=== PATIENT | female | born 1985 | race Caucasian/White ===

== ENCOUNTER 2021-06-20 04:46 | Emergency (ER) | payer MEDICAID, SELFPAY ==
[2021-06-20 06:11] VITALS: BP 159/126; PULSE 94; RESP 14; O2SAT 98; BMI 23.3
[2021-06-20 06:41] LABS: MANUAL DIFF FLAG NO
[2021-06-20 06:43] LABS: Appearance Urine CLOUDY; Color Urine RED; Glucose Urine UA NEG (NEG); Leukocyte Esterase Urine TRACE (NEG); Nitrite Urine NEG (NEG); Specific Gravity - Urine <= 1.005 (1.005-1.025); UACC Culture Trigger YES; Urine Blood 3+ (NEG); Urine Ketones NEG (NEG); Urine Protein TRACE MG/DL (NEG-TRACE)
[2021-06-20 06:49] LABS: Bacteria Urine TRACE /LPF; Squamous Epithelial Cell Urine 2+ /LPF
[2021-06-20 06:52] LABS: Basophils Percent Auto 0.5 % (0-2); Eosinophils Absolute Auto 0.1 X10*3/uL (0.0-0.4); Eosinophils Percent Auto 0.9 % (0-4); Hematocrit 41.3 % (37-47); Hemoglobin 14.6 g/dl (12.0-16.0); Imm Gran Abs Auto 0.02 X10*3/uL (0.00-0.03); Imm Gran Pct Auto 0.3 % (0.0-0.4); Lymphocytes Absolute Auto 2.2 X10*3/uL (1.2-4.9); Lymphocytes Percent Auto 27.1 % (20-40); Mean Corpuscular HGB Conc 35.4 g/dl (31.0-35.0); Mean Corpuscular Hemoglobin 33.5 pg (27.0-33.0); Mean Corpuscular Volume 94.7 fL (80-98); Mean Platelet Volume 8.9 fL (9.4-12.3); Monocytes Absolute Auto 0.4 X10*3/uL (0.1-1.2); Monocytes Percent Auto 4.4 % (2-11); Neutrophils Absolute Auto 5.4 X10*3/uL (2.0-8.3); Neutrophils Percent Auto 66.8 % (45-73); Platelet Count 291 X10*3/uL (160-400); Red Blood Count 4.36 X10*6/uL (4.20-5.50); Red Cell Distribution Width 13.2 % (11.0-16.0)
[2021-06-20 07:14] LABS: Anion Gap 14 (12-20); Blood Urea Nitrogen 4 mg/dL (9-16); Calcium 9.2 mg/dL (8.4-10.2); Carbon Dioxide 29 mmol/L (22-29); Chloride 101 mmol/L (96-108); Creatinine Clr Calc Pharmacy 98.1; Estimated Glomerular Filt Rate > 60; Glucose Random 101 mg/dL (60-115); Potassium 3.9 mmol/L (3.3-5.1); Sodium 140 mmol/L (135-145)
[2021-06-20 07:27] LABS: UPreg QC Valid YES; Urine Pregnancy NEGATIVE (NEGATIVE)
[2021-06-20] MEDS: 0.9 % Sodium Chloride 1,000 ML 999 ML IV (09:12)
[2021-06-20] MEDS: ondansetron HCL 4 MG/2 ML VIAL IVPUSH (09:12)
--- NOTE | 2021-06-20 09:40 | ED_ITS ---
HPI - Nausea/Vomiting/Diarrhea General Chief complaint: Nausea/Vomiting/Diarrhea Stated complaint: nausea, vomiting Time Seen by Provider: 06/20/21 08:32 Source: patient Mode of arrival: ambulatory Limitations: no limitations History of Present Illness HPI Narrative: A 36-year-old female presents for 3 weeks of nausea and vomiting. Patient states that she had missed her menses and a positive test 2 days ago. Yesterday a test was negative at home. Patient has a history of hyperemesis, and started her period yesterday. She is soaking 3 pads a day. Her last menstrual period was 6 weeks ago. When patient has been before she has had severe nausea and vomiting. Patient is able to eat, she ate salad prior to arrival. She is able to tolerate p.o. fluids and is drinking plenty of water. No abdominal pain, no fevers. MD elicited complaint: nausea and vomiting Onset (ago): week(s) (3) Description of vomiting: food contents Associated nausea: Yes Associated abdominal pain: No Related Data Previous Rx's Medication Instructions Recorded ondansetron HCl 4 mg tablet 4 mg PO Q8H 3 Days #9 tab 06/20/21 (Zofran) Allergies Allergy/AdvReac Type Severity Reaction Status Date / Time prednisone [PREDNISONE] Allergy Severe SWELLING, Unverified 06/24/20 15:32 HTN Review of Systems Constitutional: Constitutional: Denies body ache(s), Denies chills, Denies fatigue, Denies fever(s), Denies headache(s), Denies malaise and Denies weakness Eyes: Eyes: Denies diplopia ENT: Denies vertigo, Denies dizziness, Denies otalgia, Denies headache(s), Denies post nasal drip, Denies sinus pain, Denies sinus pressure and Denies sore throat Cardiovascular: Cardiovascular: Denies chest pain, Denies syncope, Denies leg edema, Denies lightheadedness, Denies Loss of Consciousness, Denies palpitations and Denies dyspnea Respiratory: Respiratory: Denies chest congestion, Denies cough and Denies dyspnea Gastrointestinal: Gastrointestinal: Denies abdominal pain, Denies melena, Denies hematochezia, Denies constipation, Denies loose stools, Reports nausea and Reports vomiting Genitourinary: Genitourinary: Denies genital pruritis, Denies dyspareunia, Denies dysmenorrhea, Denies dysuria, Denies pelvic pain, Denies urinary urgency and Denies vaginal odor Musculoskeletal: Musculoskeletal: Reports no additional musculoskeletal complaints Neurologic: Denies confusion, Denies vertigo, Denies dizziness, Denies syncope, Denies headache(s) and Denies weakness Psychiatric: Psychiatric: Denies anxiety, Denies confusion and Denies depre ssion Endocrine: Endocrine: Denies fatigue and Denies palpitations PMFSH Past Medical History Medical History Hyperemesis Hypertension Social History Social History Advance Directives: No Advance Directives Information Provided: Yes Physical Exam Vital Signs: Vital Signs: Last Vital Signs Pulse 94 06/20/21 06:11 Resp 14 06/20/21 06:11 BP 159/126 H 06/20/21 06:11 Pulse Ox 98 06/20/21 06:11 Body Mass Index 23.3 Const: General: no acute distress, well developed, alert and awake; No confusion Nutritional Appearance: well nourished Orientation/consciousness: No confusion Limitations: no limitations HENMT: Head: Yes normal to inspection, Yes normocephalic and Yes atraumatic Ears: hearing grossly normal bilaterally, external ears normal, TM's normal chago aterally and EAC's normal General nose exam: Normal external nose present Face and sinus: Yes normal facial exam and Yes sinuses nontender Mouth: Normal oral and palatal mucosa present Throat: Yes posterior oropharynx normal Eyes: Conjunctivae: conjunctivae normal Pupils: Equal, round and reactive pupils present EOM: EOMs intact bilaterally Neck: Neck: Yes full ROM, Yes no lymphadenopathy and Yes supple Resp: Effort & Inspection: normal respiratory effort and able to speak in complete sentences Auscultation: clear to auscultation bilaterally, no crackles, no rales, no rhonchi and no wheezes Cardio: Rate: regular rate Rhythm: regular rhythm Heart sounds: S1 normal heart sound present and S2 normal heart sound present GI: Inspection: Yes normal to inspection Palpation (GI): Soft to palpation, nontender, no guarding and not rigid Percussion: Yes normal to percussion Auscultation: normal bowel sounds Skin: General skin exam: no rashes or lesions noted Neuro: General: No confusion Cranial nerves: Yes Equal, round and reactive pupils present Extrem: General: Yes normal to inspection and Yes full ROM Psych: Appearance: grossly normal Affect: normal affect Attitude: cooperative Thought process: Normal thought process present Course Course Course Narrative: 36-year-old female who was recently presents for nausea and vomiting for the last 3 weeks. Patient is on her menses now. Patient's urine here is negative. Labs are negative. Patient states history of hyperemesis, rehydrating, giving Zofran. Reevaluation(s) Reevaluation #1: Patient is feeling much better after Zofran and fluids. Will discharge with prescription for Zofran, follow up with PCP MDM - Nausea/Vomiting/Diarrhea Lab Data Result diagrams: 06/20/21 06:34 06/20/21 06:34 Labs: Lab Results 06/20/21 06/20/21 06/20/21 Range/Units 06:34 06:34 06:34 WBC 8.0 (4.8-10.8) X10*3/uL RBC 4.36 (4.20-5.50) X10*6/uL Hgb 14.6 (12.0-16.0) g/dl Hct 41.3 (37-47) % MCV 94.7 (80-98) fL MCH 33.5 H (27.0-33.0) pg MCHC 35.4 H (31.0-35.0) g/dl RDW 13.2 (11.0-16.0) % Plt Count 291 (160-400) X10*3/uL MPV 8.9 L (9.4-12.3) fL Immature Gran % (Auto) 0.3 (0.0-0.4) % Neut % (Auto) 66.8 (45-73) % Lymph % (Auto) 27.1 (20-40) % [place] % (Auto) 4.4 (2-11) % Eos % (Auto) 0.9 (0-4) % Baso % (Auto) 0.5 (0-2) % Lymph # (Auto) 2.2 (1.2-4.9) X10*3/uL [place] # (Auto) 0.4 (0.1-1.2) X10*3/uL Eos # (Auto) 0.1 (0.0-0.4) X10*3/uL Baso # (Auto) 0.0 (0.0-0.2) X10*3/uL Abs Immat Gran (auto) 0.02 (0.00-0.03) X10*3/uL Absolute Neuts (auto) 5.4 (2.0-8.3) X10*3/uL Absolute Nucleated RBC 0.000 (0.0-0.012) X10*3/uL Nucleated RBC % (auto) 0.0 (0.0-0.2) /100WBC Sodium 140 (135-145) mmol/L Potassium 3.9 (3.3-5.1) mmol/L Chloride 101 (96-108) mmol/L Carbon Dioxide 29 (22-29) mmol/L Anion Gap 14 (12-20) BUN 4 L (9-16) mg/dL Creatinine 0.72 (0.5-1.4) mg/dL Estim Creat Clear Calc 98.1 Estimated GFR > 60 Random Glucose 101 (60-115) mg/dL Calcium 9.2 (8.4-10.2) mg/dL Urine Color RED Urine Appearance CLOUDY Urine pH 6.0 (5.0-8.0) Ur Specific [place] <= 1.005 (1.005-1.025) Urine Protein TRACE (NEG-TRACE) MG/DL Urine Glucose (UA) NEG (NEG) MG/DL Urine Ketones NEG (NEG) MG/DL Urine Blood 3+ H (NEG) Urine Nitrite NEG (NEG) Ur Leukocyte Esterase TRACE H (NEG) Urine RBC 76-150 H (0) /HPF Urine WBC 1-4 (0-4) /HPF Ur Squamous Epith Cells 2+ /LPF Urine Bacteria TRACE /LPF Urine Test (NEGATIVE) 06/20/21 Range/Units 06:34 WBC (4.8-10.8) X10*3/uL RBC (4.20-5.50) X10*6/uL Hgb (12.0-16.0) g/dl Hct (37-47) % MCV (80-98) fL MCH (27.0-33.0) pg MCHC (31.0-35.0) g/dl RDW (11.0-16.0) % Plt Count (160-400) X10*3/uL MPV (9.4-12.3) fL Immature Gran % (Auto) (0.0-0.4) % Neut % (Auto) (45-73) % Lymph % (Auto) (20-40) % [place] % (Auto) (2-11) % Eos % (Auto) (0-4) % Baso % (Auto) (0-2) % Lymph # (Auto) (1.2-4.9) X10*3/uL [place] # (Auto) (0.1-1.2) X10*3/uL Eos # (Auto) (0.0-0.4) X10*3/uL Baso # (Auto) (0.0-0.2) X10*3/uL Abs Immat Gran (auto) (0.00-0.03) X10*3/uL Absolute Neuts (auto) (2.0-8.3) X10*3/uL Absolute Nucleated RBC (0.0-0.012) X10*3/uL Nucleated RBC % (auto) (0.0-0.2) /100WBC Sodium (135-145) mmol/L Potassium (3.3-5.1) mmol/L Chloride (96-108) mmol/L Carbon Dioxide (22-29) mmol/L Anion Gap (12-20) BUN (9-16) mg/dL Creatinine (0.5-1.4) mg/dL Estim Creat Clear Calc Estimated GFR Random Glucose (60-115) mg/dL Calcium (8.4-10.2) mg/dL Urine Color Urine Appearance Urine pH (5.0-8.0) Ur Specific [place] (1.005-1.025) Urine Protein (NEG-TRACE) MG/DL Urine Glucose (UA) (NEG) MG/DL Urine Ketones (NEG) MG/DL Urine Blood (NEG) Urine Nitrite (NEG) Ur Leukocyte Esterase (NEG) Urine RBC (0) /HPF Urine WBC (0-4) /HPF Ur Squamous Epith Cells /LPF Urine Bacteria /LPF Urine Test NEGATIVE (NEGATIVE) Discharge Plan Discharge Clinical Impression: Hyperemesis Patient Disposition: Home, Self-Care Instructions: Acute Nausea and Vomiting (ED) Additional Instructions: Please return if your nausea or vomiting worsens, if you have pelvic pain, fevers, or any other new or concerning symptoms Please call your primary care provider for follow-up appointment from today's visit Prescriptions: New ondansetron HCl [Zofran] 4 mg tablet 4 mg PO Q8H 3 Days Qty: 9 RF: 0
== END 2021-06-20 10:15 | disposition home or self-care (01) ==
PROVIDERS: Emergency Provider Emergency Medicine; PCP Nurse Practitioner Family
DX: O21.0 Mild hyperemesis gravidarum (principal); Z3A.01 Less than 8 weeks gestation of pregnancy
CPT/HCPCS: 36415; 80048; 81001; 81025; 85025; 87086; 87147; 96361; 96365; 96374; 96375; 99282; 99284; J2405

== ENCOUNTER 2021-12-16 21:30 | Emergency (ER) | payer MEDICAID, SELFPAY ==
--- NOTE | ~2021-12-16 | XR_ITS ---
EXAMINATION: XR CHEST CLINICAL INFORMATION: Dizziness, shortness of breath COMPARISON: None TECHNIQUE: Frontal view of the chest was obtained. FINDINGS: The lungs are clear with no focal consolidation. No evidence of pneumothorax, pulmonary edema, or pleural effusions. The cardiomediastinal silhouette is unremarkable. No acute osseous findings. XR/XR chest 1V IMPRESSION: No acute cardiopulmonary findings.
[2021-12-16 22:18] VITALS: BP 143/83; PULSE 108; RESP 18; TEMP 36.8; O2SAT 98; BMI 28.3
--- NOTE | 2021-12-16 22:27 | ECG_ITS ---
Test Reason : SOB Blood Pressure : / mmHG Vent. Rate : 098 BPM Atrial Rate : 098 BPM P-R Int : 116 ms QRS Dur : 088 ms QT Int : 356 ms P-R-T Axes : 060 012 030 degrees QTc Int : 454 ms Normal sinus rhythm Normal ECG When compared with ECG of 29-JUL-2018 19:27, No significant change was found Referred By: Generic ED Physician Electronically Signed By:PEGGY WEN MD
[2021-12-16 23:06] LABS: MANUAL DIFF FLAG NO
[2021-12-16 23:07] LABS: Basophils Absolute Auto 0.1 X10*3/uL (0.0-0.2); Basophils Percent Auto 0.7 % (0-2); Eosinophils Absolute Auto 0.1 X10*3/uL (0.0-0.4); Eosinophils Percent Auto 0.3 % (0-4); Hematocrit 41.2 % (37.0-47.0); Hemoglobin 13.9 g/dl (12.0-16.0); Imm Gran Pct Auto 0.7 % (0.0-0.4); Lymphocytes Absolute Auto 2.3 X10*3/uL (1.2-4.9); Lymphocytes Percent Auto 15.6 % (20-40); Mean Corpuscular HGB Conc 33.7 g/dl (31.0-35.0); Mean Corpuscular Hemoglobin 30.9 pg (27.0-33.0); Mean Corpuscular Volume 91.6 fL (80.0-98.0); Mean Platelet Volume 8.5 fL (9.4-12.3); Monocytes Absolute Auto 0.7 X10*3/uL (0.1-1.2); Monocytes Percent Auto 4.5 % (2-11); Neutrophils Absolute Auto 11.5 x10*3/uL (2.0-8.3); Neutrophils Percent Auto 78.2 % (45-73); Platelet Count 477 X10*3/uL (160-400); Red Cell Distribution Width 13.3 % (11.0-16.0); White Blood Count 14.8 X10*3/uL (4.8-10.8)
[2021-12-16 23:19] LABS: D Dimer High Sensitivity < 150 NG/ML
[2021-12-16 23:23] LABS: Anion Gap 19 (12-20); Blood Urea Nitrogen 12 mg/dL (9-16); Carbon Dioxide 21 mmol/L (22-29); Chloride 102 mmol/L (96-108); Creatinine Clr Calc Pharmacy 107.4; Estimated Glomerular Filt Rate > 60; Glucose Random 77 mg/dL (60-115); Potassium 4.5 mmol/L (3.3-5.1); Sodium 137 mmol/L (135-145)
[2021-12-16 23:30] LABS: Troponin-I High Sensitivity < 3.5 ng/L (<3.5-17.0)
[2021-12-16 23:39] LABS: Appearance Urine HAZY; Color Urine STRAW; Glucose Urine UA NEG (NEG); Leukocyte Esterase Urine NEG (NEG); Nitrite Urine NEG (NEG); Urine Blood NEG (NEG); Urine Ketones NEG (NEG); Urine Protein NEG (NEG-TRACE)
[2021-12-17 00:16] VITALS: BP 117/80; PULSE 98; RESP 16; TEMP 37.1; O2SAT 98
--- NOTE | 2021-12-17 00:17 | ED.GENADULT ---
HPI - General Adult General Chief complaint: Dizziness Stated complaint: large bruise? on back of leg Time Seen by Provider: 12/17/21 00:17 Source: patient Limitations: no limitations History of Present Illness HPI narrative: This is a 36-year-old female who admits to regular alcohol use, did last drink today (though initially she did notrecall this and her mother had to remind her), who noted a bruise on her right posterior medial thigh today. The patient does not recall any injury to the thigh or any recent falls. She denies any other bruising except on her left anterior leg where she notes that she does have a bruise that is sore. She denies pain around the bruise on her right thigh. The patient also has other complaints such as frequent vomiting where on some days she will vomit uncontrollably, not be able to hold anything down. She has been seen in the ED for this. She denies any vomiting today. She has had occasional diarrhea and abdominal cramps. She also complains of dizziness intermittently, and shortness of breath with exertion. She denies any pedal edema. She denies any other substance abuse, does not smoke. The patient also complained of occasional episodes of severe chest pain and feeling like her heart is racing. The patient has had she has worn a heart monitor in the past. Related Data Previous Rx's Medication Instructions Recorded ondansetron HCl 4 mg tablet 4 mg PO Q8H 3 Days #9 tab 06/20/21 (Zofran) amoxicillin 875 mg-potassium 1 tab PO BID 10 Days #20 tab 06/24/21 clavulanate 125 mg tablet (Augmentin) ondansetron HCl 4 mg tablet 4 mg PO Q8H PRN #14 tab 06/24/21 (Zofran) Allergies Allergy/AdvReac Type Severity Reaction Status Date / Time prednisone [PREDNISONE] Allergy Severe SWELLING, Verified 12/16/21 22:24 HTN Review of Systems Review of Systems: Yes all other systems are reviewed and are negative Constitutional: Constitutional: Reports as per HPI and Denies fever(s) Eyes: Eyes: Reports as per HPI and Reports no additional eye complaints ENT: Reports system reviewed and no additional complaints, except as documented, Reports as per HPI, Reports dizziness, Denies nasal congestion, Denies nasal discharge and Denies sore throat Cardiovascular: Cardiovascular: Reports as per HPI, Reports chest pain and Reports dyspnea Respiratory: Respiratory: Reports as per HPI, Denies cough and Reports dyspnea Gastrointestinal: Gastrointestinal: Reports as per HPI, Reports abdominal pain, Reports diarrhea, Reports nausea and Reports vomiting Genitourinary: Genitourinary: Reports as per HPI, Denies hematuria, Denies urinary frequency and Denies dysuria Musculoskeletal: Musculoskeletal: Reports no additional musculoskeletal complaints and Denies numbness Integumentary/Breasts: Skin/Breast: Reports as per HPI and Denies rash Neurologic: Reports as per HPI, Reports dizziness, Denies focal weakness and Denies numbness Psychiatric: Psychiatric: Reports no additional psychiatric complaints and Reports as per HPI Endocrine: Endocrine: Reports no additional endocrine complaints and Reports as per HPI Hematologic/Lymphatic: Hematologic/Lymphatic: Reports no additional hematologic/lymphatic complaints, Reports as per HPI and Reports other (No peripheral edema) Comments: Bruising to right thigh PMFSH Past Medical History Medical History Hyperemesis Hypertension Social History Social History Advance Directives: No Advance Directives Information Provided: Yes Patient : No Physical Exam ED Vital Signs: Vital Signs - 24 hr 12/16/21 22:18 12/17/21 00:16 Temperature 98.2 F 98.7 F Pulse Rate 108 H 98 Respiratory Rate 18 16 Blood Pressure 143/83 H 117/80 Pulse Oximetry 98 98 BMI result Body Mass Index 28.3 Const General: no acute distress Orientation/consciousness: patient oriented x3 HENMT Head: Yes normal to inspection General nose exam: Normal external nose present Mouth: moist mucous membranes Throat: Yes posterior oropharynx normal, Yes tonsils normal and Yes uvula midline Eyes Eyelids: Yes eyelids normal Conjunctivae: conjunctivae normal Pupils: Equal, round and reactive pupils present Neck Neck: Yes supple Resp Effort & Inspection: normal respiratory effort Auscultation: clear to auscultation bilaterally Cardio Rate: regular rate Rhythm: regular rhythm Heart sounds: S1 normal heart sound present, S2 normal heart sound present, no gallops, no murmurs and no rubs GI Inspection: No distended Palpation (GI): Soft to palpation and nontender Auscultation: normal bowel sounds Skin Other: Non tender, non indurated ecchymosis, to an area which is roughly 2-3 inches x 7-8 inches right posteromedial thigh. No cords palpable in the thigh. No calf swelling or tenderness. General skin exam: other (Warm and dry) Neuro General: patient oriented x3 and CN's II-XI intact bilaterally Cranial nerves: Yes Equal, round and reactive pupils present Extrem General: Yes no pedal edema Psych Affect: normal affect Attitude: cooperative Medical Decision Making [facility] Narrative Medical decision making narrative: Patient with ecchymotic lesion to right posterior thigh, does not recall trauma. Patient does drink alcohol regularly. Platelet count is normal. Patient's white blood cell count is elevated but she has no sign of infection with no evidence of pneumonia or UTI, no abdominal tenderness. Patient does report episodic vomiting, denies marijuana use. She has not however vomited today. Patient also has more chronic symptoms of intermittent chest pain, shortness of breath, dizziness.. Given the overall clinical picture with vital signs normal, unremarkable EKG, unremarkable chemistry, negative D-dimer, do not believe any further workup in the ED is necessary, patient can follow up with her primary care physician. Lab Data Lab results reviewed: Yes I reviewed the patient's lab results. Result diagrams: 12/16/21 23:00 12/16/21 23:00 Labs: Lab Results 12/16/21 12/16/21 12/16/21 Range/Units 23:00 23:00 23:00 WBC 14.8 H (4.8-10.8) X10*3/uL RBC 4.50 (4.20-5.50) X10*6/uL Hgb 13.9 (12.0-16.0) g/dl Hct 41.2 (37.0-47.0) % MCV 91.6 (80.0-98.0) fL MCH 30.9 (27.0-33.0) pg MCHC 33.7 (31.0-35.0) g/dl RDW 13.3 (11.0-16.0) % Plt Count 477 H (160-400) X10*3/uL MPV 8.5 L (9.4-12.3) fL Immature Gran % (Auto) 0.7 H (0.0-0.4) % Neut % (Auto) 78.2 H (45-73) % Lymph % (Auto) 15.6 L (20-40) % [place] % (Auto) 4.5 (2-11) % Eos % (Auto) 0.3 (0-4) % Baso % (Auto) 0.7 (0-2) % Lymph # (Auto) 2.3 (1.2-4.9) X10*3/uL [place] # (Auto) 0.7 (0.1-1.2) X10*3/uL Eos # (Auto) 0.1 (0.0-0.4) X10*3/uL Baso # (Auto) 0.1 (0.0-0.2) X10*3/uL Abs Immat Gran (auto) 0.10 H (0.00-0.03) X10*3/uL Absolute Neuts (auto) 11.5 H (2.0-8.3) x10*3/uL Absolute Nucleated RBC 0.000 (0.0-0.012) X10*3/uL Nucleated RBC % (auto) 0.0 (0.0-0.2) /100WBC D-Dimer High Sensitivty NG/ML Sodium 137 (135-145) mmol/L Potassium 4.5 (3.3-5.1) mmol/L Chloride 102 (96-108) mmol/L Carbon Dioxide 21 L (22-29) mmol/L Anion Gap 19 (12-20) BUN 12 (9-16) mg/dL Creatinine 0.75 (0.5-1.4) mg/dL Estim Creat Clear Calc 107.4 Estimated GFR > 60 Random Glucose 77 (60-115) mg/dL Calcium 10.0 D (8.4-10.2) mg/dL Troponin I High Sens < 3.5 (<3.5-17.0) ng/L Urine Color Urine Appearance Urine pH (5.0-8.0) Ur Specific [place] (1.005-1.025) Urine Protein (NEG-TRACE) MG/DL Urine Glucose (UA) (NEG) MG/DL Urine Ketones (NEG) MG/DL Urine Blood (NEG) Urine Nitrite (NEG) Ur Leukocyte Esterase (NEG) 12/16/21 12/16/21 Range/Units 23:00 23:32 WBC (4.8-10.8) X10*3/uL RBC (4.20-5.50) X10*6/uL Hgb (12.0-16.0) g/dl Hct (37.0-47.0) % MCV (80.0-98.0) fL MCH (27.0-33.0) pg MCHC (31.0-35.0) g/dl RDW (11.0-16.0) % Plt Count (160-400) X10*3/uL MPV (9.4-12.3) fL Immature Gran % (Auto) (0.0-0.4) % Neut % (Auto) (45-73) % Lymph % (Auto) (20-40) % [place] % (Auto) (2-11) % Eos % (Auto) (0-4) % Baso % (Auto) (0-2) % Lymph # (Auto) (1.2-4.9) X10*3/uL [place] # (Auto) (0.1-1.2) X10*3/uL Eos # (Auto) (0.0-0.4) X10*3/uL Baso # (Auto) (0.0-0.2) X10*3/uL Abs Immat Gran (auto) (0.00-0.03) X10*3/uL Absolute Neuts (auto) (2.0-8.3) x10*3/uL Absolute Nucleated RBC (0.0-0.012) X10*3/uL Nucleated RBC % (auto) (0.0-0.2) /100WBC D-Dimer High Sensitivty < 150 NG/ML Sodium (135-145) mmol/L Potassium (3.3-5.1) mmol/L Chloride (96-108) mmol/L Carbon Dioxide (22-29) mmol/L Anion Gap (12-20) BUN (9-16) mg/dL Creatinine (0.5-1.4) mg/dL Estim Creat Clear Calc Estimated GFR Random Glucose (60-115) mg/dL Calcium (8.4-10.2) mg/dL Troponin I High Sens (<3.5-17.0) ng/L Urine Color STRAW Urine Appearance HAZY Urine pH 6.0 (5.0-8.0) Ur Specific [place] 1.010 (1.005-1.025) Urine Protein NEG (NEG-TRACE) MG/DL Urine Glucose (UA) NEG (NEG) MG/DL Urine Ketones NEG (NEG) MG/DL Urine Blood NEG (NEG) Urine Nitrite NEG (NEG) Ur Leukocyte Esterase NEG (NEG) Imaging Data Chest x-ray: Radiologist's impression: IMPRESSION: No acute cardiopulmonary findings. ECG Data Attestation: I personally reviewed and interpreted this ECG as follows: Interpretation: Sinus rhythm with a rate of 98. RSR pattern in lead V1 and V2. No ST elevation or depression. Normal QRS axis. No ectopy. Discharge Plan Discharge Clinical Impression: Superficial bruising of thigh, Dizziness, Chronic dyspnea Patient Disposition: Home, Self-Care Instructions: Dyspnea (ED), Dizziness (ED) Additional Instructions: Follow-up with your primary care physician. Drink plenty of fluids. Return for any new or worsened symptoms. Prescriptions: No Action ondansetron HCl [Zofran] 4 mg tablet 4 mg PO Q8H 3 Days Qty: 9 0RF amoxicillin-pot clavulanate [Augmentin] 875-125 mg tablet 1 tab PO BID 10 Days Qty: 20 0RF ondansetron HCl [Zofran] 4 mg tablet 4 mg PO Q8H PRN (Reason: nausea and vomiting) Qty: 14 0RF Interventions: ED Discharge Assessment Last Done: 12/17/21 00:47 Discharge Date/Time: 12/17/21 00:48
== END 2021-12-17 00:48 | disposition home or self-care (01) ==
PROVIDERS: Emergency Provider Emergency Medicine
DX: S70.11XA Contusion of right thigh, initial encounter (principal); X58.XXXA Exposure to other specified factors, initial encounter; R42 Dizziness and giddiness; R06.00 Dyspnea, unspecified; I10 Essential (primary) hypertension; Y93.9 Activity, unspecified; Y92.9 Unspecified place or not applicable; Y99.9 Unspecified external cause status
CPT/HCPCS: 36415; 71045; 80048; 81003; 84484; 85025; 85379; 93005; 99284

== ENCOUNTER 2021-12-26 14:48 | Emergency (ER) | payer MEDICAID, SELFPAY ==
[2021-12-26 15:05] VITALS: BP 165/106; PULSE 96; RESP 18; O2SAT 96; BMI 29.9
[2021-12-26] MEDS: hydrOXYzine HCL 25 MG TABLET PO (15:55)
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
[2021-12-26 16:17] LABS: Appearance Urine CLEAR; Color Urine YELLOW; Glucose Urine UA NEG (NEG); Leukocyte Esterase Urine NEG (NEG); Nitrite Urine NEG (NEG); Specific Gravity - Urine 1.015 (1.005-1.025); Urine Blood NEG (NEG); Urine Ketones NEG (NEG); Urine Protein NEG (NEG-TRACE)
[2021-12-26 16:18] LABS: UPreg QC Valid YES; Urine Pregnancy NEGATIVE (NEGATIVE)
[2021-12-26 16:30] LABS: Amphetamine Screen Urine Not Detected (Not Detect); Barbiturates, Urine Not Detected (Not Detect); Benzodiazepines Screen Urine POSITIVE (Not Detect); Cannabinoid Screen Urine Not Detected (Not Detect); Cocaine Screen Urine Not Detected (Not Detect); Fentanyl, urine POSITIVE (Not Detect); Opiate Screen Urine Not Detected (Not Detect); Phencyclidine Screen Urine Not Detected (Not Detect)
[2021-12-26 16:30] LABS: COVID-19 Test Negative (Negative)
[2021-12-26 16:54] LABS: MANUAL DIFF FLAG NO
[2021-12-26 16:55] LABS: Basophils Absolute Auto 0.1 X10*3/uL (0.0-0.2); Basophils Percent Auto 0.4 % (0-2); Eosinophils Absolute Auto 0.1 X10*3/uL (0.0-0.4); Eosinophils Percent Auto 0.8 % (0-4); Hematocrit 36.6 % (37.0-47.0); Hemoglobin 12.1 g/dl (12.0-16.0); Imm Gran Abs Auto 0.06 X10*3/uL (0.00-0.03); Imm Gran Pct Auto 0.4 % (0.0-0.4); Lymphocytes Absolute Auto 2.4 X10*3/uL (1.2-4.9); Lymphocytes Percent Auto 17.6 % (20-40); Mean Corpuscular HGB Conc 33.1 g/dl (31.0-35.0); Mean Corpuscular Hemoglobin 31.3 pg (27.0-33.0); Mean Corpuscular Volume 94.8 fL (80.0-98.0); Mean Platelet Volume 9.3 fL (9.4-12.3); Monocytes Absolute Auto 0.6 X10*3/uL (0.1-1.2); Monocytes Percent Auto 4.6 % (2-11); NRBC Pct Auto 0.1 /100WBC (0.0-0.2); Neutrophils Absolute Auto 10.4 x10*3/uL (2.0-8.3); Neutrophils Percent Auto 76.2 % (45-73); Platelet Count 387 X10*3/uL (160-400); Red Blood Count 3.86 X10*6/uL (4.20-5.50); Red Cell Distribution Width 13.2 % (11.0-16.0); White Blood Count 13.6 X10*3/uL (4.8-10.8)
[2021-12-26 17:15] LABS: Alanine Aminotransferase 33 U/L (0-31); Albumin Level 4.2 g/dL (3.5-5.0); Alkaline Phosphatase 92 U/L (39-117); Anion Gap 14 (12-20); Aspartate Amino Transferase 50 U/L (5-31); Bilirubin Direct 0.2 mg/dL (0.0-0.5); Bilirubin Total 0.5 mg/dL (0.0-1.0); Blood Urea Nitrogen 13 mg/dL (9-16); Carbon Dioxide 24 mmol/L (22-29); Chloride 102 mmol/L (96-108); Creatinine Clr Calc Pharmacy 99.8; Estimated Glomerular Filt Rate > 60; Glucose Random 102 mg/dL (60-115); Potassium 4.5 mmol/L (3.3-5.1); Sodium 135 mmol/L (135-145); Total Protein 7.3 g/dL (6.5-8.0)
[2021-12-26 18:01] LABS: Magnesium 1.9 mg/dL (1.6-2.6)
--- NOTE | 2021-12-26 18:37 | PC.NURSE ---
Patient critical lab of ck [id number] reported to md ward
--- NOTE | 2021-12-26 18:57 | MHC.CARE ---
[facility] unable to send a clinician during this shift. CARE team will complete evaluation. This commercial loan underwriter attempted to meet with pt around 6pm, however she was being transferred to the main ED to receive fluids due to elevated lab results. This commercial loan underwriter will try again later.
[2021-12-26 19:04] LABS: Ethanol < 10 mg/dL
[2021-12-26 20:13] VITALS: BP 127/85; PULSE 85; RESP 18; O2SAT 99
[2021-12-26] MEDS: 0.9 % Sodium Chloride 1,000 ML 999 ML IV ×2 (20:57→22:29)
[2021-12-26 22:20] VITALS: BP 133/76; PULSE 78; RESP 14; O2SAT 100
[2021-12-27 00:52] VITALS: PULSE 82; RESP 16; TEMP 37.1; O2SAT 99
[2021-12-27] MEDS: Cyclobenzaprine HCl 10 MG TABLET PO (00:54)
--- NOTE | 2021-12-28 12:57 | MHC.CARE ---
CARE Team contacts pt as a follow up to her ER visit.? Pt reports that she has been in contact with [facility] and has an intake on 01/09 and should everything go well she will begin the program on 01/10.? Presently she is experiencing elevated anxiety levels and is no taking any medications as she does not have a prescriber.? Pt reports that she has a therapist who she spoke with at length yesterday (approx. 2 hrs).? She reports doing and feeling better since her discharge with the exception of her anxiety.? She stated that her recent set of circumstances has been challenging and anxiety provoking having lost so much in such a short period of time.? Pt reports that she has downloaded and used an application on her phone when she experiences elevated anxiety and panic attacks. ?She stated that the [place] and its interventions have been useful.? She reports also having joined a Facebook group for individuals with anxiety.
== END 2021-12-27 02:14 | disposition home or self-care (01) ==
PROVIDERS: Physician Assistant; Emergency Provider Emergency Medicine Emergency Medical Services
DX: F41.1 Generalized anxiety disorder (principal); F32.A Depression, unspecified; G47.00 Insomnia, unspecified; Z20.822 Contact with and (suspected) exposure to COVID-19; F41.0 Panic disorder [episodic paroxysmal anxiety]; I10 Essential (primary) hypertension; F19.10 Other psychoactive substance abuse, uncomplicated; F11.20 Opioid dependence, uncomplicated; Z79.899 Other long term (current) drug therapy
CPT/HCPCS: 36415; 80048; 80076; 80307; 81003; 81025; 82077; 82550; 83735; 85025; 87635; 96360; 96361; 99285

== ENCOUNTER 2022-01-05 00:03 | Inpatient (IN) | payer MEDICAID, SELFPAY ==
[2022-01-05] VITALS (12 sets, daily range): BP systolic 96–150; BP diastolic 54–100; PULSE 90–110; RESP 14–20; TEMP 36.2–37.2; O2SAT 96–98; BMI 29.1
--- NOTE | 2022-01-05 00:19 | ED.GENADULT ---
HPI - General Adult General Chief complaint: ETOH/Substance Use Stated complaint: ALCOHOL WITHDRAWAL Time Seen by Provider: 01/05/22 00:06 Source: patient Mode of arrival: EMS History of Present Illness HPI narrative: 36-year-old female with history of anxiety, alcohol use disorder, on Suboxone, who arrives via EMS for complaints of alcohol withdrawal now for 3 days. She does have an appointment to enter into a detox program January 09 for an intake and otherwise states that she has been experiencing AVH, denies headaches, but is having significant tremors. Patient denies that she is ever had seizures and declines alcohol detox at this time. Related Data Home Medications Medication Instructions Recorded Confirmed acamprosate 333 mg tablet,delayed 2 tab PO TID 12/26/21 12/26/21 release buprenorphine 4 mg-naloxone 1 mg 1 strip SUBLINGUAL DAILY 12/26/21 12/26/21 sublingual film (Suboxone) lisinopril 10 1 tab PO DAILY 12/26/21 12/26/21 mg-hydrochlorothiazide 12.5 mg tablet Allergies Allergy/AdvReac Type Severity Reaction Status Date / Time prednisone [PREDNISONE] Allergy Severe SWELLING, Verified 12/16/21 22:24 HTN Review of Systems Review of Systems: Pertinent positives and negatives as stated in HPI 10 point review of systems is otherwise negative. PMFSH Past Medical History Source: nursing notes reviewed Medical History Hyperemesis Hypertension Social History Social History Alcohol intake: current Alcohol intake frequency: a few times a month Patient Tobacco Use Status: Never used Tobacco Advance Directives: No Patient : Yes Physical Exam ED Vital Signs: Vital Signs - 24 hr 01/05/22 00:12 Temperature 98.9 F Pulse Rate 99 Respiratory Rate 18 Blood Pressure 143/86 H Pulse Oximetry 98 BMI result Body Mass Index 29.1 VITAL SIGNS: Reviewed. GENERAL: Well developed, well nourished, in no acute distress. HEAD: Normocephalic/atraumatic EYES: PERRLA, EOMI intact without pain, no nystagmus EARS: Ext canals without abnormality OROPHARYNX: no oral lesions noted, posterior pharynx clear LUNGS: Normal breath sounds. No adventitious sounds or accessory muscle use. CARDIOVASCULAR: Regular rate and rhythm without noted murmurs. ABDOMEN: Soft, non-tender, non-distended with bowel sounds. MUSCULOSKELETAL: No tenderness, deformities, or effusions noted on gross inspection. EXTREMITIES: No cyanosis, clubbing or edema. SKIN: Inspection of the skin reveals no rashes NEUROLOGIC: Alert and oriented x 4. Strength and sensation to light touch were grossly intact x 4, tremors noted Course Course Course Narrative: 36-year-old female with history and clinical presentation consistent with alcohol withdrawal. Will obtain basic labs as well as toxicology screens and likely admit the patient for alcohol withdrawal. Review of all investigations demonstrates alcohol levels negative, no evidence of rhabdomyolysis, observed leukocytosis is consistent with prior levels. Patient started on a phenobarbital protocol and discuss case with inpatient hospitalist who accepts admission. Medical Decision Making Lab Data Result diagrams: 01/05/22 00:53 01/05/22 00:53 Labs: Lab Results 01/05/22 01/05/22 01/05/22 Range/Units 00:32 00:53 00:53 WBC 13.9 H (4.8-10.8) X10*3/uL RBC 4.06 L (4.20-5.50) X10*6/uL Hgb 12.9 (12.0-16.0) g/dl Hct 36.6 L (37.0-47.0) % MCV 90.1 (80.0-98.0) fL MCH 31.8 (27.0-33.0) pg MCHC 35.2 H (31.0-35.0) g/dl RDW 13.2 (11.0-16.0) % Plt Count 363 (160-400) X10*3/uL MPV 9.4 (9.4-12.3) fL Immature Gran % (Auto) 0.4 (0.0-0.4) % Neut % (Auto) 78.1 H (45-73) % Lymph % (Auto) 13.6 L (20-40) % [place] % (Auto) 6.9 (2-11) % Eos % (Auto) 0.6 (0-4) % Baso % (Auto) 0.4 (0-2) % Lymph # (Auto) 1.9 (1.2-4.9) X10*3/uL [place] # (Auto) 1.0 (0.1-1.2) X10*3/uL Eos # (Auto) 0.1 (0.0-0.4) X10*3/uL Baso # (Auto) 0.1 (0.0-0.2) X10*3/uL Abs Immat Gran (auto) 0.05 H (0.00-0.03) X10*3/uL Absolute Neuts (auto) 10.9 H (2.0-8.3) x10*3/uL Absolute Nucleated RBC 0.000 (0.0-0.012) X10*3/uL Nucleated RBC % (auto) 0.0 (0.0-0.2) /100WBC Sodium 134 L (135-145) mmol/L Potassium 3.2 L D (3.3-5.1) mmol/L Chloride 95 L (96-108) mmol/L Carbon Dioxide 25 (22-29) mmol/L Anion Gap 17 (12-20) BUN 17 H (9-16) mg/dL Creatinine 1.16 (0.5-1.4) mg/dL Estim Creat Clear Calc 70.5 Estimated GFR 53 Random Glucose 120 H (60-115) mg/dL Calcium 10.1 D (8.4-10.2) mg/dL Total Bilirubin 1.0 (0.0-1.0) mg/dL AST 51 H (5-31) U/L ALT 58 H (0-31) U/L Alkaline Phosphatase 79 (39-117) U/L Total Creatine Kinase 109 D (26-140) U/L Total Protein 8.0 (6.5-8.0) g/dL Albumin 4.7 (3.5-5.0) g/dL Beta HCG, Quant < 2 mIU/mL Urine Color Urine Appearance Urine pH (5.0-8.0) Ur Specific [place] (1.005-1.025) Urine Protein (NEG-TRACE) MG/DL Urine Glucose (UA) (NEG) MG/DL Urine Ketones (NEG) MG/DL Urine Blood (NEG) Urine Nitrite (NEG) Ur Leukocyte Esterase (NEG) Urine RBC (0) /HPF Urine WBC (0-4) /HPF Urine WBC Clumps Ur Squamous Epith Cells /LPF Urine Bacteria /LPF Urine Opiates Screen (Not Detect) Urine Fentanyl Screen (Not Detect) Ur Barbiturates Screen (Not Detect) Ur Phencyclidine Scrn (Not Detect) Ur Amphetamines Screen (Not Detect) U Benzodiazepines Scrn (Not Detect) Urine Cocaine Screen (Not Detect) U Marijuana (THC) Screen (Not Detect) Ethyl Alcohol mg/dL COVID-19 ([facility]) Negative (Negative) COVID-19 Clin Com See Note 01/05/22 01/05/22 01/05/22 Range/Units 00:53 01:11 01:11 WBC (4.8-10.8) X10*3/uL RBC (4.20-5.50) X10*6/uL Hgb (12.0-16.0) g/dl Hct (37.0-47.0) % MCV (80.0-98.0) fL MCH (27.0-33.0) pg MCHC (31.0-35.0) g/dl RDW (11.0-16.0) % Plt Count (160-400) X10*3/uL MPV (9.4-12.3) fL Immature Gran % (Auto) (0.0-0.4) % Neut % (Auto) (45-73) % Lymph % (Auto) (20-40) % [place] % (Auto) (2-11) % Eos % (Auto) (0-4) % Baso % (Auto) (0-2) % Lymph # (Auto) (1.2-4.9) X10*3/uL [place] # (Auto) (0.1-1.2) X10*3/uL Eos # (Auto) (0.0-0.4) X10*3/uL Baso # (Auto) (0.0-0.2) X10*3/uL Abs Immat Gran (auto) (0.00-0.03) X10*3/uL Absolute Neuts (auto) (2.0-8.3) x10*3/uL Absolute Nucleated RBC (0.0-0.012) X10*3/uL Nucleated RBC % (auto) (0.0-0.2) /100WBC Sodium (135-145) mmol/L Potassium (3.3-5.1) mmol/L Chloride (96-108) mmol/L Carbon Dioxide (22-29) mmol/L Anion Gap (12-20) BUN (9-16) mg/dL Creatinine (0.5-1.4) mg/dL Estim Creat Clear Calc Estimated GFR Random Glucose (60-115) mg/dL Calcium (8.4-10.2) mg/dL Total Bilirubin (0.0-1.0) mg/dL AST (5-31) U/L ALT (0-31) U/L Alkaline Phosphatase (39-117) U/L Total Creatine Kinase (26-140) U/L Total Protein (6.5-8.0) g/dL Albumin (3.5-5.0) g/dL Beta HCG, Quant mIU/mL Urine Color YELLOW Urine Appearance HAZY Urine pH 5.5 (5.0-8.0) Ur Specific [place] 1.025 (1.005-1.025) Urine Protein NEG (NEG-TRACE) MG/DL Urine Glucose (UA) NEG (NEG) MG/DL Urine Ketones 5 (NEG) MG/DL Urine Blood 1+ H (NEG) Urine Nitrite NEG (NEG) Ur Leukocyte Esterase NEG (NEG) Urine RBC 1-4 (0) /HPF Urine WBC 10-14 H (0-4) /HPF Urine WBC Clumps NOTED Ur Squamous Epith Cells 3+ /LPF Urine Bacteria 2+ /LPF Urine Opiates Screen Not Detected (Not Detect) Urine Fentanyl Screen POSITIVE H (Not Detect) Ur Barbiturates Screen Not Detected (Not Detect) Ur Phencyclidine Scrn Not Detected (Not Detect) Ur Amphetamines Screen Not Detected (Not Detect) U Benzodiazepines Scrn Not Detected (Not Detect) Urine Cocaine Screen Not Detected (Not Detect) U Marijuana (THC) Screen Not Detected (Not Detect) Ethyl Alcohol < 10 mg/dL COVID-19 ([facility]) (Negative) COVID-19 Clin Com Discharge Plan Discharge Clinical Impression: Alcohol withdrawal syndrome, Hypertension Patient Disposition: Admitted As Inpatient Prescriptions: No Action lisinopril-hydrochlorothiazide 10-12.5 mg tablet 1 tab PO DAILY 0RF acamprosate 333 mg tablet,delayed release (DR/EC) 2 tab PO TID 0RF buprenorphine-naloxone [Suboxone] 4-1 mg film 1 strip sublingual DAILY 0RF
[2022-01-05 00:53] LABS: COVID-19 Test Negative (Negative)
[2022-01-05 00:58] LABS: Basophils Absolute Auto 0.1 X10*3/uL (0.0-0.2); Basophils Percent Auto 0.4 % (0-2); Eosinophils Absolute Auto 0.1 X10*3/uL (0.0-0.4); Eosinophils Percent Auto 0.6 % (0-4); Hematocrit 36.6 % (37.0-47.0); Hemoglobin 12.9 g/dl (12.0-16.0); Imm Gran Abs Auto 0.05 X10*3/uL (0.00-0.03); Imm Gran Pct Auto 0.4 % (0.0-0.4); Lymphocytes Absolute Auto 1.9 X10*3/uL (1.2-4.9); Lymphocytes Percent Auto 13.6 % (20-40); MANUAL DIFF FLAG NO; Mean Corpuscular HGB Conc 35.2 g/dl (31.0-35.0); Mean Corpuscular Hemoglobin 31.8 pg (27.0-33.0); Mean Corpuscular Volume 90.1 fL (80.0-98.0); Mean Platelet Volume 9.4 fL (9.4-12.3); Monocytes Percent Auto 6.9 % (2-11); Neutrophils Absolute Auto 10.9 x10*3/uL (2.0-8.3); Neutrophils Percent Auto 78.1 % (45-73); Platelet Count 363 X10*3/uL (160-400); Red Blood Count 4.06 X10*6/uL (4.20-5.50); Red Cell Distribution Width 13.2 % (11.0-16.0); White Blood Count 13.9 X10*3/uL (4.8-10.8)
[2022-01-05 01:08] LABS: Ethanol < 10 mg/dL
[2022-01-05 01:12] LABS: Alanine Aminotransferase 58 U/L (0-31); Albumin Level 4.7 g/dL (3.5-5.0); Alkaline Phosphatase 79 U/L (39-117); Anion Gap 17 (12-20); Aspartate Amino Transferase 51 U/L (5-31); Blood Urea Nitrogen 17 mg/dL (9-16); Calcium 10.1 mg/dL (8.4-10.2); Carbon Dioxide 25 mmol/L (22-29); Chloride 95 mmol/L (96-108); Creatinine Clr Calc Pharmacy 70.5; Estimated Glomerular Filt Rate 53; Glucose Random 120 mg/dL (60-115); Potassium 3.2 mmol/L (3.3-5.1); Sodium 134 mmol/L (135-145)
[2022-01-05 01:18] LABS: HCG Quantitative < 2 mIU/mL
[2022-01-05 01:20] LABS: Appearance Urine HAZY; Color Urine YELLOW; Glucose Urine UA NEG (NEG); Leukocyte Esterase Urine NEG (NEG); Nitrite Urine NEG (NEG); PH 5.5 (5.0-8.0); Specific Gravity - Urine 1.025 (1.005-1.025); UACC Culture Trigger NO; Urine Blood 1+ (NEG); Urine Ketones 5 MG/DL (NEG); Urine Protein NEG (NEG-TRACE)
[2022-01-05 01:31] LABS: Amphetamine Screen Urine Not Detected (Not Detect); Barbiturates, Urine Not Detected (Not Detect); Benzodiazepines Screen Urine Not Detected (Not Detect); Cannabinoid Screen Urine Not Detected (Not Detect); Cocaine Screen Urine Not Detected (Not Detect); Fentanyl, urine POSITIVE (Not Detect); Opiate Screen Urine Not Detected (Not Detect); Phencyclidine Screen Urine Not Detected (Not Detect)
[2022-01-05 01:39] LABS: Bacteria Urine 2+ /LPF; Squamous Epithelial Cell Urine 3+ /LPF; UACC CULT YES; WBC Clumps Urine NOTED
[2022-01-05] MEDS: 0.9 % Sodium Chloride 1,000 ML 999 ML IV (01:57)
[2022-01-05] MEDS: LORazepam 1 MG TABLET 2 MG PO ×2 (02:08→14:41)
[2022-01-05] MEDS: Potassium Chloride ER 20 MEQ TAB.ER.PRT 60 MEQ PO (02:08)
[2022-01-05 02:14] LABS: Magnesium 2.1 mg/dL (1.6-2.6)
[2022-01-05] MEDS: Enoxaparin Sodium 40 MG/0.4 ML SYRINGE SUBCUT (03:13)
[2022-01-05] MEDS: Dextrose 5 % and 0.45 % NaCl 1,000 ML 100 ML IVCONT (03:13)
[2022-01-05] MEDS: LORazepam 1 MG TABLET PO ×2 (04:39→08:37)
--- NOTE | 2022-01-05 04:39 | PM.IMHP ---
History of Present Illness Date of Service: 01/05/22 Chief Complaint: Alcohol withdrawal 36-year-old female with a past medical history of hypertension, alcohol abuse presented to the hospital today with a chief complaint of alcohol withdrawal. Patient reports that she has been drinking about 20 shortness of alcohol every day for the past 1 year; recent decided to reduce alcohol intake and started to decrease her dose of alcohol for the past 2 weeks and came to 1 short about 3 days ago and has not had a drink since then. Mentioned that she is tremulous and has been not able to sleep for the past 3-5 days. Denies any nausea vomiting or abdominal pain. Reports he had but blurry at home. When police came in they checked her blood pressure noted to be on the higher side; suggested her to go to the ER for further evaluation. Patient denies any chest pain palpitations lightheadedness or dizziness. Denies any fever chills cough. Denies any GI symptoms. Review of all other systems is negative except mentioned above ER course: Per ER team patient on presentation noted to be in alcohol withdrawal. Given Ativan. On labs noted to have potassium 3.2. Troponin slightly above the upper normal. Admitted for further management [facility] Medical History Hyperemesis Hypertension Pertinent family history: Mother had venous thromboembolism Social History Household Members: Family Housing: House Do you presently have visiting nurse or other home services: No Alcohol intake: former Patient Tobacco Use Status: Never used Tobacco e-Cigarette/Vaping Use: Never Used service: No Current occupational status: employed Meds Allergies Allergy/AdvReac Type Severity Reaction Status Date / Time prednisone [PREDNISONE] Allergy Severe SWELLING, Verified 12/16/21 22:24 HTN Active Medications: Current Medications Acetaminophen (Acetaminophen 325 Mg Tablet) 650 mg PO Q6H PRN PRN Reason: Pain, Mild (Pain Scale 1-3) Benzonatate (Benzonatate 100 Mg Capsule) 100 mg PO TID PRN PRN Reason: Cough Enoxaparin Sodium (Enoxaparin Sodium 40 Mg/0.4 Ml Syringe) 40 mg SUBCUT Q24H [facility] Last Admin: 01/05/22 03:13 Dose: 40 mg Documented by: Famotidine (Famotidine 20 Mg Tablet) 20 mg PO BID [facility] Folic Acid (Folic Acid 1 Mg Tablet) 1 mg PO DAILY [facility] Stop: 01/08/22 08:59 Dextrose/Sodium Chloride (D51/2ns) 1,000 mls @ 100 mls/hr IVCONT .Q10H [facility] Last Admin: 01/05/22 03:13 Dose: 100 mls/hr Documented by: Lorazepam (Lorazepam 1 Mg Tablet) 1 mg PO Q4H [facility]; Taper Stop: 01/09/22 03:59 Last Admin: 01/05/22 04:39 Dose: 1 mg Documented by: Lorazepam (Lorazepam 1 Mg Tablet) 1 mg PO Q4H PRN PRN Reason: Breakthrough alcohol withdrawa Stop: 01/09/22 01:58 Lorazepam (Lorazepam 2 Mg/Ml Vial) 1 mg IVPUSH Q2H PRN PRN Reason: Breakthrough alcohol withdrawa Lorazepam (Lorazepam 1 Mg Tablet) 1 mg PO Q4H PRN PRN Reason: Breakthrough alcohol withdrawa Stop: 01/09/22 01:58 Melatonin (Melatonin 3 Mg Tablet) 6 mg PO BEDTIME PRN PRN Reason: Insomnia Multivitamins/Vitamin C (Multivitamin Tablet) 1 tab PO DAILY [facility] Stop: 01/08/22 08:59 Sodium Chloride (0.9 % Sodium Chloride Flush 3 Ml Syringe) 3 ml IVFLUSH QSHIFT [facility] Thiamine HCl (Thiamine Hcl 100 Mg Tablet) 100 mg PO DAILY [facility] Stop: 01/08/22 08:59 Physical Exam Vital Signs and Narrative: Vital Signs: Last Vital Signs Temp 98.2 F 01/05/22 04:00 Pulse 100 01/05/22 04:00 Resp 16 01/05/22 04:00 BP 115/57 L 01/05/22 04:00 Pulse Ox 97 01/05/22 04:00 BMI result Body Mass Index 29.1 Gen: Appears be in no acute distress HEENT: NCAT, dry mucosa. Pulmonary: Vesicular breath sounds, fair air entry CVS: Normal S1-S2 Abdomen: BS+, Soft, Nontender Extremities: Warm well perfused Neuro: Alert and awake. Oriented x3; grossly nonfocal. Mildly tremulous. Results Labs CBC and Chem 7: 01/09/22 05:58 01/09/22 05:58 Labs: Laboratory Results - last 24 hr 01/05/22 01/05/2201/05/22 00:32 00:53 00:53 MCV 90.1 MCH 31.8 MCHC 35.2 H RDW 13.2 Plt Count 363 MPV 9.4 Immature Gran % (Auto) 0.4 Neut % (Auto) 78.1 H Lymph % (Auto) 13.6 L [place] % (Auto) 6.9 Eos % (Auto) 0.6 Baso % (Auto) 0.4 Lymph # (Auto) 1.9 [place] # (Auto) 1.0 Eos # (Auto) 0.1 Baso # (Auto) 0.1 Abs Immat Gran (auto) 0.05 H Absolute Neuts (auto) 10.9 H Absolute Nucleated RBC 0.000 Nucleated RBC % (auto) 0.0 Anion Gap 17 Estim Creat Clear Calc 70.5 Estimated GFR 53 Random Glucose 120 H Calcium 10.1 D Magnesium 2.1 Total Bilirubin 1.0 AST 51 H ALT 58 H Alkaline Phosphatase 79 Total Creatine Kinase 109 D Total Protein 8.0 Albumin 4.7 Beta HCG, Quant < 2 Urine Color Urine Appearance Urine pH Ur Specific [place] Urine Protein Urine Glucose (UA) Urine Ketones Urine Blood Urine Nitrite Ur Leukocyte Esterase Urine RBC Urine WBC Urine WBC Clumps Ur Squamous Epith Cells Urine Bacteria Urine Opiates Screen Urine Fentanyl Screen Ur Barbiturates Screen Ur Phencyclidine Scrn Ur Amphetamines Screen U Benzodiazepines Scrn Urine Cocaine Screen U Marijuana (THC) Screen Ethyl Alcohol COVID-19 ([facility]) Negative COVID-19 Clin Com See Note 01/05/22 01/05/22 01/05/22 00:53 01:11 01:11 MCV MCH MCHC RDW Plt Count MPV Immature Gran % (Auto) Neut % (Auto) Lymph % (Auto) [place] % (Auto) Eos % (Auto) Baso % (Auto) Lymph # (Auto) [place] # (Auto) Eos # (Auto) Baso # (Auto) Abs Immat Gran (auto) Absolute Neuts (auto) Absolute Nucleated RBC Nucleated RBC % (auto) Anion Gap Estim Creat Clear Calc Estimated GFR Random Glucose Calcium Magnesium Total Bilirubin AST ALT Alkaline Phosphatase Total Creatine Kinase Total Protein Albumin Beta HCG, Quant Urine Color YELLOW Urine Appearance HAZY Urine pH 5.5 Ur Specific [place] 1.025 Urine Protein NEG Urine Glucose (UA) NEG Urine Ketones 5 Urine Blood 1+ H Urine Nitrite NEG Ur Leukocyte Esterase NEG Urine RBC 1-4 Urine WBC 10-14 H Urine WBC Clumps NOTED Ur Squamous Epith Cells 3+ Urine Bacteria 2+ Urine Opiates Screen Not Detected Urine Fentanyl Screen POSITIVE H Ur Barbiturates Screen Not Detected Ur Phencyclidine Scrn Not Detected Ur Amphetamines Screen Not Detected U Benzodiazepines Scrn Not Detected Urine Cocaine Screen Not Detected U Marijuana (THC) Screen Not Detected Ethyl Alcohol < 10 COVID-19 ([facility]) COVID-19 Clin Com Assessment and Plan (1) Alcohol withdrawal syndrome: Status: Acute Plan 36-year-old female with a past medical history of hypertension presented to the hospital with a chief complaint of alcohol withdrawal. Alcohol withdrawal: Patient reports visual and auditory hallucinations. Will give the patient on CIWA protocol with Ativan. Will also start the patient on Librium 50 mg t.i.d. Seizure precautions Will give the patient on thiamine, folate, multivitamins Hypokalemia: Repleted. Magnesium within normal limits Insomnia: Patient reported that she has not slept in past 5 days. Melatonin and Benadryl p.r.n. History of hypertension: Patient blood pressure currently stable. DVT prophylaxis: Lovenox Code status: Full code Quality Stroke Does the patient have a stroke diagnosis?: No VTE Prior VTE?: No VTE Risk Level:: Medical - moderate - high VTE Device Contraindication: Treatment Not Indicated VTE Drug Contraindication: N/A - Med Ordered
--- NOTE | 2022-01-05 04:46 | PC.NURSE ---
PT continues to report visual and auditory hallucinations. PT stated that her mom and brother are outside the room and they also going to be admitted. PT asked if mother and brother could stay in the same room all together. Provider made aware. PT medicated with 3 mg of Ativan total so far but plan for Librium to treat withdrawal symptoms.
[2022-01-05] MEDS: LORazepam 2 MG/ML VIAL IVPUSH ×2 (05:10→12:25)
[2022-01-05] MEDS: Potassium Chloride Packet 20 MEQ PACKET 40 MEQ PO (05:11)
[2022-01-05 07:29] LABS: MANUAL DIFF FLAG NO
[2022-01-05 07:35] LABS: Basophils Absolute Auto 0.1 X10*3/uL (0.0-0.2); Basophils Percent Auto 0.4 % (0-2); Eosinophils Absolute Auto 0.1 X10*3/uL (0.0-0.4); Eosinophils Percent Auto 0.4 % (0-4); Hematocrit 35.8 % (37.0-47.0); Hemoglobin 12.1 g/dl (12.0-16.0); Imm Gran Abs Auto 0.05 X10*3/uL (0.00-0.03); Imm Gran Pct Auto 0.4 % (0.0-0.4); Lymphocytes Absolute Auto 2.6 X10*3/uL (1.2-4.9); Mean Corpuscular HGB Conc 33.8 g/dl (31.0-35.0); Mean Corpuscular Hemoglobin 30.9 pg (27.0-33.0); Mean Corpuscular Volume 91.6 fL (80.0-98.0); Mean Platelet Volume 9.4 fL (9.4-12.3); Monocytes Absolute Auto 1.1 X10*3/uL (0.1-1.2); Monocytes Percent Auto 8.8 % (2-11); Platelet Count 345 X10*3/uL (160-400); Red Blood Count 3.91 X10*6/uL (4.20-5.50); Red Cell Distribution Width 13.5 % (11.0-16.0); White Blood Count 12.8 X10*3/uL (4.8-10.8)
[2022-01-05 07:50] LABS: Anion Gap 13 (12-20); Blood Urea Nitrogen 13 mg/dL (9-16); Calcium 9.4 mg/dL (8.4-10.2); Carbon Dioxide 27 mmol/L (22-29); Chloride 102 mmol/L (96-108); Creatinine Clr Calc Pharmacy 85.2; Estimated Glomerular Filt Rate > 60; Glucose Random 97 mg/dL (60-115); Potassium 4.9 mmol/L (3.3-5.1); Sodium 137 mmol/L (135-145)
[2022-01-05] MEDS: chlordiazePOXIDE HCl 25 MG CAPSULE 50 MG PO (08:37)
[2022-01-05] MEDS: Thiamine HCL 100 MG TABLET PO (08:38)
[2022-01-05] MEDS: Famotidine 20 MG TABLET PO (08:38)
[2022-01-05] MEDS: Folic Acid 1 MG TABLET PO (08:38)
[2022-01-05] MEDS: Multivitamin TABLET 1 TAB PO (08:38)
--- NOTE | 2022-01-05 08:57 | PC.NURSE ---
PT DISCONNECTED IV TUBING AND IS WALKING AROUND THE ED FULLY DRESSED. SHE TOOK HER PO MEDICATION FOR WITHDRAWAL AND IS AWARE SHE IS HAVING SOME HALLUCINATING. SHE IS EASILY REDIRECTED TO HER ROOM SECURITY IS AWARE OF PT.
[2022-01-05] MEDS: Lactated Ringers 1,000 ML 100 ML IVCONT ×2 (09:25→23:16)
--- NOTE | 2022-01-05 10:01 | MHC.CM.PN ---
Attempted to meet with patient in regards to discharge planning. Patient currently in the bathroom. No family present. Will attempt to meet again. Continue to monitor for d/c needs.
[2022-01-05] MEDS: LORazepam 2 MG/ML VIAL 1 MG IVPUSH (10:09)
--- NOTE | 2022-01-05 10:16 | PHA.MEDREC ---
Pharmacy Consult ? Medication Reconciliation Pharmacy has completed the medication reconciliation. spoke with pt, on suboxone and lisinopril/hctz
--- NOTE | 2022-01-05 11:15 | PC.NURSE ---
PT STILL FIDGETING IN THE ROOM AND CONFUSED AT TIMES. SHE IS ABLE TO ACKNOWLEDGE AND CORRECT HERSELF PERIODICALLY. MEDICATED CHARTED FOR WITHDRAWAL SXS WITH MIN AFFECT
[2022-01-05] MEDS: Buprenorphine/Naloxone 4/1 mg FILM 1 FILM SUBLINGUAL (11:25)
[2022-01-05] MEDS: LORazepam 1 MG TABLET 0.5 MG PO (11:27)
--- NOTE | 2022-01-05 11:47 | MHC.CM.PN ---
Attempted to meet with patient in regards to discharge planning. Patient currently on the phone. Will attempt to meet again. Continue to monitor for d/c needs.
--- NOTE | 2022-01-05 12:24 | PM.EVENT ---
Event Note Date of Service: 01/05/22 Event Note: Patient is going significantly high on CIWA scale, tremulous, having visual hallucinations. Will discontinue Librium Increase Ativan to 2 mg Will give 2 mg Ativan IV now, can repeat every 15-60 minutes as needed, will monitor closely
[2022-01-05 14:00] LABS: UPreg QC Valid YES; Urine Pregnancy NEGATIVE (NEGATIVE)
[2022-01-05] MEDS: Gabapentin 100 MG CAPSULE 200 MG PO (14:39)
[2022-01-05] MEDS: Valproic Acid (as Sodium Salt) 500 MG in Dextrose 5 % 50 ML 55 MG IV (14:39)
--- NOTE | 2022-01-05 14:41 | PC.NURSE ---
PT SETTLING DOWN ON STRETCHER SHE WAS PLACED BACK ON THE MONITOR SHE CONTINUES TO MUMBLE DISORGANIZED THOUGHTS. IV VALPROIC ACID INFUSING AND GABAPENTIN WAS GIVEN. PT ENCOURAGED TO REST
--- NOTE | 2022-01-05 15:35 | PC.NURSE ---
PT FINALLY RESTING QUIETLY IN BED. IV FLUIDS ARE INFUSING AND MONITOR IS SR IN THE LOW 100'S
--- NOTE | 2022-01-05 16:05 | MHC.CM.PN ---
Attempted to meet with pt for d/c planning. Pt snoring. Recently medicated. Will try later when patient more awake. CM to follow for d/c needs.
--- NOTE | 2022-01-05 17:03 | PC.NURSE ---
REMAINS SLEEPING. HR UNCHANGED
--- NOTE | 2022-01-05 20:34 | MHC.CM.PN ---
Pt continues to sleep. snoring. CM unable to complete CM assessment and d/c planning at this time. Will continue to observe for opportunity to speak with patient. Pt awaiting bed assignment.
--- NOTE | 2022-01-05 22:39 | MHC.CM.PN ---
Pt continues to sleep soundly, at times snoring. Unable to complete d/c planning.
[2022-01-06] VITALS (7 sets, daily range): BP systolic 124–156; BP diastolic 78–94; PULSE 91–112; RESP 14–20; TEMP 36.7–37.1; O2SAT 98–100
[2022-01-06] MEDS: Enoxaparin Sodium 40 MG/0.4 ML SYRINGE SUBCUT (00:42)
[2022-01-06] MEDS: LORazepam 1 MG TABLET 0.5 MG PO ×7 (00:43→23:36)
[2022-01-06 09:33] LABS: Hematocrit 33.6 % (37.0-47.0); Hemoglobin 11.3 g/dl (12.0-16.0); Mean Corpuscular HGB Conc 33.6 g/dl (31.0-35.0); Mean Corpuscular Hemoglobin 31.7 pg (27.0-33.0); Mean Corpuscular Volume 94.1 fL (80.0-98.0); Mean Platelet Volume 9.1 fL (9.4-12.3); Platelet Count 285 X10*3/uL (160-400); Red Blood Count 3.57 X10*6/uL (4.20-5.50); Red Cell Distribution Width 13.8 % (11.0-16.0); White Blood Count 7.6 X10*3/uL (4.8-10.8)
[2022-01-06] MEDS: Thiamine HCL 100 MG TABLET PO (09:34)
[2022-01-06] MEDS: Famotidine 20 MG TABLET PO ×2 (09:34→20:20)
[2022-01-06] MEDS: Gabapentin 100 MG CAPSULE 200 MG PO (09:34)
[2022-01-06] MEDS: Folic Acid 1 MG TABLET PO (09:34)
[2022-01-06] MEDS: Multivitamin TABLET 1 TAB PO (09:34)
[2022-01-06] MEDS: Buprenorphine/Naloxone 4/1 mg FILM 1 FILM SUBLINGUAL (09:35)
[2022-01-06] MEDS: Lactated Ringers 1,000 ML 100 ML IVCONT ×2 (09:44→18:27)
[2022-01-06 09:52] LABS: Anion Gap 8 (12-20); Blood Urea Nitrogen 9 mg/dL (9-16); Carbon Dioxide 32 mmol/L (22-29); Chloride 103 mmol/L (96-108); Creatinine Clr Calc Pharmacy 123.9; Estimated Glomerular Filt Rate > 60; Glucose Fasting 93 mg/dL (60-99); Potassium 4.1 mmol/L (3.3-5.1); Sodium 139 mmol/L (135-145)
--- NOTE | 2022-01-06 09:58 | HO.PM.IMPN ---
Subjective Subjective Date of Service: 01/06/22 Interval History: cc: hallucinations, jittery interval history: sleeping comfortably Review of Systems Review of Systems: Yes Unobtainable due to mental condition Physical Exam Vital Signs: Vital Signs: Last Vital Signs Temp 98.1 F 01/06/22 03:47 Pulse 107 H 01/06/22 09:33 Resp 14 01/06/22 09:33 BP 146/94 H 01/06/22 09:33 Pulse Ox 100 01/06/22 09:33 BMI result Body Mass Index 29.1 General: resting comfortably, was previously delerious Resp: CTA bilateral, no accessory muscles used CVS: S1,S2,RRR GI: soft, non tender, non distended Neuro: motor grossly intact Psych: impaired insight Objective Data Active Medications Acetaminophen (Acetaminophen 325 Mg Tablet) 650 mg PO Q6H PRN PRN Reason: Pain, Mild (Pain Scale 1-3) Buprenorphine/Naloxone (Buprenorphine/Naloxone 4/1 Mg Film) 1 film SUBLINGUAL DAILY [facility] Last Admin: 01/06/22 09:35 Dose: 1 film Documented by: PASHA Enoxaparin Sodium (Enoxaparin Sodium 40 Mg/0.4 Ml Syringe) 40 mg SUBCUT Q24H [facility] Last Admin: 01/06/22 00:42 Dose: 40 mg Documented by: MARELY Famotidine (Famotidine 20 Mg Tablet) 20 mg PO BID [facility] Last Admin: 01/06/22 09:34 Dose: 20 mg Documented by: PASHA Folic Acid (Folic Acid 1 Mg Tablet) 1 mg PO DAILY [facility] Stop: 01/08/22 08:59 Last Admin: 01/06/22 09:34 Dose: 1 mg Documented by: PASHA Gabapentin (Gabapentin 100 Mg Capsule) 100 mg PO BID [facility] Lactated Ringer's (Lr) 1,000 mls @ 100 mls/hr IVCONT .Q10H [facility] Last Admin: 01/06/22 09:44 Dose: 100 mls/hr Documented by: PASHA Valproic Acid 500 mg/ Dextrose 55 mls @ 55 mls/hr IV ONCE [facility] Lorazepam (Lorazepam 2 Mg/Ml Vial) 1 mg IVPUSH Q2H PRN PRN Reason: Breakthrough alcohol withdrawa Last Admin: 01/05/22 10:09 Dose: 1 mg Documented by: LEE Lorazepam (Lorazepam 1 Mg Tablet) 2 mg PO Q4H PRN PRN Reason: Breakthrough alcohol withdrawa Stop: 01/09/22 01:58 Last Admin: 01/05/22 14:41 Dose: 2 mg Documented by: LEE Lorazepam (Lorazepam 1 Mg Tablet) 1 mg PO Q4H [facility]; Taper Stop: 01/09/22 03:59 Last Admin: 01/06/22 09:35 Dose: 1 mg Documented by: PASHA Multivitamins/Vitamin C (Multivitamin Tablet) 1 tab PO DAILY [facility] Stop: 01/08/22 08:59 Last Admin: 01/06/22 09:34 Dose: 1 tab Documented by: PASHA Sodium Chloride (0.9 % Sodium Chloride Flush 3 Ml Syringe) 3 ml IVFLUSH QSHIFT [facility] Last Admin: 01/06/22 09:25 Dose: Not Given Documented by: PASHA Non-Admin Reason: IV Running Thiamine HCl (Thiamine Hcl 100 Mg Tablet) 100 mg PO DAILY [facility] Stop: 01/08/22 08:59 Last Admin: 01/06/22 09:34 Dose: 100 mg Documented by: PASHA Labs CBC & Chem 7: 01/06/22 09:21 01/06/22 09:21 Labs: Laboratory Results - last 24 hr 01/05/22 01/06/22 01/06/22 01:11 09:21 09:21 MCV 94.1 MCH 31.7 MCHC 33.6 RDW 13.8 Plt Count 285 MPV 9.1 L Absolute Nucleated RBC 0.000 Nucleated RBC % (auto) 0.0 Anion Gap 8 L Estim Creat Clear Calc 123.9 Estimated GFR > 60 Fasting Glucose 93 Calcium 9.0 Urine Test NEGATIVE Assessment and Plan (1) Alcohol withdrawal syndrome: Status: Acute Plan 36F presented with ams alcohol dependence with withdrawal and delerium improving, resting comfortably continue gabapentin, ativan, monitor ciwa opioate dependence suboxone reason for continued hospitalization: still with some delerium, withdrawal Quality Stroke Does the patient have a stroke diagnosis?: No VTE Prior VTE?: No VTE Risk Level:: Medical - moderate - high VTE Device Contraindication: Treatment Not Indicated VTE Drug Contraindication: N/A - Med Ordered
[2022-01-06] MEDS: LORazepam 2 MG/ML VIAL 1 MG IVPUSH ×2 (10:35→22:00)
--- NOTE | 2022-01-06 10:42 | MHC.RECOVRN ---
Met with pt to f/u and assess for alcohol withdrawal. Pt received 1 mg PO Ativan at 0930. Pt awake, fidgety in bed, on the phone with pts mom. Pts mom requested to speak with t/w, pt gave permission. Mother informed t/w that pt was crying and telliing her things that are not true, such as someone coming into their house with a gun. Pts mother states Everything she's saying, all that bad stuff that happened before she went there, isn't true. There wasn't a robbery or anyone with a gun. Pts mother reports pts last drink was 01/02 or 01/03. Reports pt had been drinking 10-20 shots daily x 1 year. Pts stepfather, who had raised pt, a year ago due to COVID. Pt began drinking heavily then and this is the first time she has stopped. Pt currently reporting nausea, is tremulous, moist palms, and is anxious. Would score pt at 19 on CIWA-Ar. Discussed with provider as well as pts RN. Pt to receive 1 mg IV Ativan now. Will continue to follow.
[2022-01-06] MEDS: 0.9 % Sodium Chloride Flush 3 ML SYRINGE IVFLUSH ×2 (18:24→20:22)
[2022-01-06] MEDS: Gabapentin 100 MG CAPSULE PO (20:20)
[2022-01-06] MEDS: Acetaminophen 325 MG TABLET 650 MG PO (23:50)
[2022-01-07] VITALS (7 sets, daily range): BP systolic 111–148; BP diastolic 58–87; PULSE 86–103; RESP 15–18; TEMP 36.4–36.8; O2SAT 98–100
[2022-01-07] MEDS: Enoxaparin Sodium 40 MG/0.4 ML SYRINGE SUBCUT (01:14)
[2022-01-07] MEDS: LORazepam 1 MG TABLET 0.5 MG PO ×5 (04:55→20:23)
[2022-01-07] MEDS: Lactated Ringers 1,000 ML 100 ML IVCONT ×2 (06:08→16:05)
[2022-01-07 06:38] LABS: Mean Corpuscular HGB Conc 32.4 g/dl (31.0-35.0); Mean Corpuscular Hemoglobin 31.3 pg (27.0-33.0); Mean Corpuscular Volume 96.6 fL (80.0-98.0); Mean Platelet Volume 9.3 fL (9.4-12.3); Platelet Count 294 X10*3/uL (160-400); Red Blood Count 3.52 X10*6/uL (4.20-5.50); Red Cell Distribution Width 13.5 % (11.0-16.0); White Blood Count 7.7 X10*3/uL (4.8-10.8)
[2022-01-07 06:59] LABS: Anion Gap 7 (12-20); Blood Urea Nitrogen 8 mg/dL (9-16); Calcium 8.6 mg/dL (8.4-10.2); Carbon Dioxide 31 mmol/L (22-29); Chloride 102 mmol/L (96-108); Creatinine Clr Calc Pharmacy 131.9; Estimated Glomerular Filt Rate > 60; Glucose Fasting 95 mg/dL (60-99); Potassium 4.3 mmol/L (3.3-5.1); Sodium 136 mmol/L (135-145)
[2022-01-07] MEDS: Gabapentin 100 MG CAPSULE PO ×2 (08:52→20:22)
[2022-01-07] MEDS: Folic Acid 1 MG TABLET PO (08:52)
[2022-01-07] MEDS: Thiamine HCL 100 MG TABLET PO (08:52)
[2022-01-07] MEDS: Famotidine 20 MG TABLET PO ×2 (08:52→20:22)
[2022-01-07] MEDS: Multivitamin TABLET 1 TAB PO (08:52)
[2022-01-07] MEDS: LORazepam 1 MG TABLET 2 MG PO (08:53)
[2022-01-07] MEDS: 0.9 % Sodium Chloride Flush 3 ML SYRINGE IVFLUSH ×3 (08:53→20:24)
--- NOTE | 2022-01-07 08:53 | P.PNIM_ITS ---
Subjective Subjective Date of Service: 01/07/22 Interval History: cc: ams interval history: some improvement, still jittery, had some hallucinations last night Cardiovascular Cardiovascular: Reports no additional cardiovascular complaints Respiratory Respiratory: Reports no additional respiratory complaints Physical Exam Vital Signs: Vital Signs: Last Vital Signs Temp 97.8 F 01/07/22 07:35 Pulse 88 01/07/22 07:35 Resp 18 01/07/22 07:35 BP 128/71 01/07/22 07:35 Pulse Ox 98 01/07/22 07:35 BMI result Body Mass Index 29.1 General: resting comfortably, was previously delerious Resp:? CTA bilateral, no accessory muscles used CVS: S1,S2,RRR GI: soft, non tender, non distended Neuro:? motor grossly intact Psych:? impaired insight? Objective Data Active Medications Buprenorphine/Naloxone (Buprenorphine/Naloxone 4/1 Mg Film) 1 film SUBLINGUAL DAILY [facility] Last Admin: 01/06/22 09:35 Dose: 1 film Documented by: PASHA Cyclobenzaprine HCl (Cyclobenzaprine Hcl 5 Mg Tablet) 5 mg PO TID PRN PRN Reason: spasm Enoxaparin Sodium (Enoxaparin Sodium 40 Mg/0.4 Ml Syringe) 40 mg SUBCUT Q24H [facility]PLAC[facility] Last Admin: 01/07/22 01:14 Dose: 40 mg Documented by: OMAR Famotidine (Famotidine 20 Mg Tablet) 20 mg PO BID [facility] Last Admin: 01/06/22 20:20 Dose: 20 mg Documented by: OMAR Folic Acid (Folic Acid 1 Mg Tablet) 1 mg PO DAILY [facility] Stop: 01/08/22 08:59 Last Admin: 01/06/22 09:34 Dose: 1 mg Documented by: PASHA Gabapentin (Gabapentin 100 Mg Capsule) 100 mg PO BID [facility] Last Admin: 01/06/22 20:20 Dose: 100 mg Documented by: OMAR Lactated Ringer's (Lr) 1,000 mls @ 100 mls/hr IVCONT .Q10H [facility] Last Admin: 01/07/22 06:08 Dose: 100 mls/hr Documented by: OMAR Lorazepam (Lorazepam 2 Mg/Ml Vial) 1 mg IVPUSH Q2H PRN PRN Reason: Breakthrough alcohol withdrawa Last Admin: 01/06/22 22:00 Dose: 1 mg Documented by: OMAR Lorazepam (Lorazepam 1 Mg Tablet) 2 mg PO Q4H PRN PRN Reason: Breakthrough alcohol withdrawa Stop: 01/09/22 01:58 Last Admin: 01/05/22 14:41 Dose: 2 mg Documented by: LEE Lorazepam (Lorazepam 1 Mg Tablet) 0.5 mg PO Q4H [facility]; Taper Stop: 01/09/22 03:59 Last Admin: 01/07/22 04:55 Dose: 0.5 mg Documented by: OMAR Multivitamins/Vitamin C (Multivitamin Tablet) 1 tab PO DAILY [facility] Stop: 01/08/22 08:59 Last Admin: 01/06/22 09:34 Dose: 1 tab Documented by: PASHA Sodium Chloride (0.9 % Sodium Chloride Flush 3 Ml Syringe) 3 ml IVFLUSH QSHIFT REPLACED BY [facility] Last Admin: 01/06/22 20:22 Dose: 3 ml Documented by: OMAR Thiamine HCl (Thiamine Hcl 100 Mg Tablet) 100 mg PO DAILY [facility] Stop: 01/08/22 08:59 Last Admin: 01/06/22 09:34 Dose: 100 mg Documented by: PASHA Labs CBC & Chem 7: 01/07/22 06:22 01/07/22 06:22 Labs: Laboratory Results - last 24 hr 01/06/22 01/06/22 01/07/22 09:21 09:21 06:22 MCV 94.1 96.6 MCH 31.7 31.3 MCHC 33.6 32.4 RDW 13.8 13.5 Plt Count 285 294 MPV 9.1 L 9.3 L Absolute Nucleated RBC 0.000 0.000 Nucleated RBC % (auto) 0.0 0.0 Anion Gap 8 L Estim Creat Clear Calc 123.9 Estimated GFR > 60 Fasting Glucose 93 Calcium 9.0 01/07/22 06:22 MCV MCH MCHC RDW Plt Count MPV Absolute Nucleated RBC Nucleated RBC % (auto) Anion Gap 7 L Estim Creat Clear Calc 131.9 Estimated GFR > 60 Fasting Glucose 95 Calcium 8.6 Microbiology Microbiology Results: Microbiology 01/05/22 Unknown Urine Culture - Final Urine clean catch - Urine yu top No growth. Assessment and Plan (1) Alcohol withdrawal syndrome: Status: Acute Plan 36F presented with ams alcohol dependence with withdrawal and delerium improving slowly continue gabapentin, ativan, monitor ciwa opioate dependence suboxone reason for continued hospitalization: still with some delerium, withdrawal, requiring close monitoring. Quality Stroke Does the patient have a stroke diagnosis?: No VTE Prior VTE?: No VTE Risk Level:: Medical - moderate - high VTE Device Contraindication: Treatment Not Indicated VTE Drug Contraindication: N/A - Med Ordered
[2022-01-07] MEDS: Buprenorphine/Naloxone 4/1 mg FILM 1 FILM SUBLINGUAL (08:54)
--- NOTE | 2022-01-07 09:35 | MHC.CM.PN ---
PT REPORTS SHE LIVES WITH HER MOTHER AND IS INDEPENDENT WITH CARE PT REPORTS SHE HAS NO DME AND NO SERVICES PT DECLINES TO COMPLETE A HCP PT DOES NOT HAVE A PCP, SHE REPORTS HERS LEFT THE AREA AND SHE IS WORKING ON GETTING A NEW ONE PT REPORTS SHE IS VACCINATED AGAINST COVID-19 AND HAS RECEIVED THE BOOSTER CURRENT DC PLAN IS HOME WITH PSYCH REFERRALS MOTHER TO TRANSPORT
[2022-01-07] MEDS: Cyclobenzaprine HCl 5 MG TABLET PO ×2 (12:41→20:22)
--- NOTE | 2022-01-07 15:04 | MHC.RECOVSUP ---
Recovery Support note: This chief writer met with patient to discuss recovery support resources. Patient reports she is starting the PHP program at the hospital on 01/10. Discussed [facility] [place] and provided information on this support. Discussed medications for alcohol use disorder, AA and recovery coaching. Patient is interested in meeting with a defensive line coach karlie. This chief writer will discuss case with defensive line coach who will follow up with patient karlie to discuss recovery supports further.
--- NOTE | 2022-01-07 20:13 | MHC.RECOVSUP ---
? Reason for consult: Recovery Support o ? ? ?Current location: [facility] o ? ? ?Identified substance use concern: Alcohol? - Support ? ?Intervention: o Community resources provided o Harm reduction discussion ? Additional information:?I was able to connect with patient; she is a 36 year old single female with a long history of COLBY with alcohol. Patient shared her recent loss of her father, a breakup with her boyfriend and homelessness. Patient described psychotic episodes the past few days from detoxing off alcohol and other substances. Patient thought she could do this on her own and realizes now that she is not only in need of medical support but support from people with lived experiences. I was able to share my experience on how I recovered from COLBY and the steps I took and continue to take to remain in this state. Patient will be attending IOP in a few days, is looking for additional support and requested a referral for a Production Welding Supervisor. I was able to submit that referral and suggested other options for community resources. We were also able to review harm reduction strategies and tools she can utilize moving forward. Patient will be staying with her mother moving forward in support of stabilizing her sobriety.
[2022-01-08] MEDS: LORazepam 1 MG TABLET 0.5 MG PO ×6 (00:27→21:26)
[2022-01-08] MEDS: Lactated Ringers 1,000 ML 100 ML IVCONT ×2 (03:09→12:38)
[2022-01-08 03:57] VITALS: BP 136/82; PULSE 101; RESP 18; TEMP 37.2; O2SAT 98
[2022-01-08 07:36] VITALS: BP 135/72; PULSE 78; RESP 18; TEMP 36.7; O2SAT 99
[2022-01-08] MEDS: Buprenorphine/Naloxone 4/1 mg FILM 1 FILM SUBLINGUAL (09:37)
[2022-01-08] MEDS: Famotidine 20 MG TABLET PO ×2 (09:37→21:27)
[2022-01-08] MEDS: Gabapentin 100 MG CAPSULE PO ×2 (09:37→21:27)
[2022-01-08] MEDS: 0.9 % Sodium Chloride Flush 3 ML SYRINGE IVFLUSH ×3 (09:38→21:28)
[2022-01-08] MEDS: Cyclobenzaprine HCl 5 MG TABLET PO ×2 (09:45→17:25)
[2022-01-08 11:43] VITALS: BP 117/68; PULSE 82; RESP 18; TEMP 36.7; O2SAT 98
--- NOTE | 2022-01-08 12:08 | P.PNIM_ITS ---
Subjective Subjective Date of Service: 01/08/22 Interval History: cc: ams interval history:?overall significantly improved, still jittery, had some ear ringing last night Cardiovascular Cardiovascular: Reports no additional cardiovascular complaints Respiratory Respiratory: Reports no additional respiratory complaints Physical Exam Vital Signs: Vital Signs: Last Vital Signs Temp 98.0 F 01/08/22 11:43 Pulse 82 01/08/22 11:43 Resp 18 01/08/22 11:43 BP 117/68 01/08/22 11:43 Pulse Ox 98 01/08/22 11:43 BMI result Body Mass Index 29.1 General: AO X 3, shaky Resp: CTA bilateral, no accessory muscles used CVS: S1,S2,RRR GI: soft, non tender, non distended Neuro: motor grossly intact, alert Psych: appropriate affect, appropriate insight Objective Data Active Medications Buprenorphine/Naloxone (Buprenorphine/Naloxone 4/1 Mg Film) 1 film SUBLINGUAL DAILY [facility] Last Admin: 01/08/22 09:37 Dose: 1 film Documented by: UMM Cyclobenzaprine HCl (Cyclobenzaprine Hcl 5 Mg Tablet) 5 mg PO TID PRN PRN Reason: spasm Last Admin: 01/08/22 09:45 Dose: 5 mg Documented by: UMM Enoxaparin Sodium (Enoxaparin Sodium 40 Mg/0.4 Ml Syringe) 40 mg SUBCUT Q24H [facility] Last Admin: 01/08/22 03:13 Dose: Not Given Documented by: OMAR Non-Admin Reason: Patient Refused Famotidine (Famotidine 20 Mg Tablet) 20 mg PO BID [facility] Last Admin: 01/08/22 09:37 Dose: 20 mg Documented by: UMM Gabapentin (Gabapentin 100 Mg Capsule) 100 mg PO BID [facility] Last Admin: 01/08/22 09:37 Dose: 100 mg Documented by: UMM Lactated Ringer's (Lr) 1,000 mls @ 100 mls/hr IVCONT .Q10H [facility] Last Admin: 01/08/22 03:09 Dose: 100 mls/hr Documented by: OMAR Lorazepam (Lorazepam 2 Mg/Ml Vial) 1 mg IVPUSH Q2H PRN PRN Reason: Breakthrough alcohol withdrawa Last Admin: 01/06/22 22:00 Dose: 1 mg Documented by: OMAR Lorazepam (Lorazepam 1 Mg Tablet) 2 mg PO Q4H PRN PRN Reason: Breakthrough alcohol withdrawa Stop: 01/09/22 01:58 Last Admin: 01/07/22 08:53 Dose: 2 mg Documented by: UMM Lorazepam (Lorazepam 1 Mg Tablet) 0.5 mg PO Q4H MARGI; Taper Stop: 01/09/22 03:59 Last Admin: 01/08/22 09:37 Dose: 0.5 mg Documented by: UMM Sodium Chloride (0.9 % Sodium Chloride Flush 3 Ml Syringe) 3 ml IVFLUSH QSHIFT [facility] Last Admin: 01/08/22 09:38 Dose: 3 ml Documented by: UMM Labs CBC & Chem 7: 01/07/22 06:22 01/07/22 06:22 Assessment and Plan (1) Alcohol withdrawal syndrome: Status: Acute Plan 36F presented with ams alcohol dependence with withdrawal and delerium improving slowly, overall much better today continue gabapentin, ativan, monitor ciwa if continues to improve, plan for discharge home in next 24-48hrs opioate dependence suboxone reason for continued hospitalization: still with some withdrawal, given severity of presentation still requiring close monitoring. Quality Stroke Does the patient have a stroke diagnosis?: No VTE Prior VTE?: No VTE Risk Level:: Medical - moderate - high VTE Device Contraindication: Treatment Not Indicated VTE Drug Contraindication: N/A - Med Ordered
[2022-01-08] MEDS: LORazepam 1 MG TABLET 2 MG PO (12:33)
[2022-01-08 15:20] VITALS: RESP 17
[2022-01-08 15:57] VITALS: BP 127/81; PULSE 86; RESP 17; TEMP 36.3; O2SAT 99
[2022-01-08 19:48] VITALS: BP 137/75; PULSE 93; RESP 18; TEMP 37; O2SAT 98
[2022-01-09] VITALS: BP 133/85; PULSE 90; RESP 15; TEMP 36.7; O2SAT 97
[2022-01-09] MEDS: Cyclobenzaprine HCl 5 MG TABLET PO ×3 (00:03→23:02)
[2022-01-09] MEDS: LORazepam 1 MG TABLET 0.5 MG PO (00:03)
[2022-01-09] MEDS: Lactated Ringers 1,000 ML 100 ML IVCONT ×3 (00:04→20:53)
[2022-01-09] MEDS: LORazepam 1 MG TABLET 2 MG PO (03:59)
[2022-01-09 04:00] VITALS: BP 119/75; PULSE 93; RESP 16; TEMP 36.7; O2SAT 98
[2022-01-09 06:06] LABS: Hematocrit 37.7 % (37.0-47.0); Hemoglobin 12.6 g/dl (12.0-16.0); Mean Corpuscular HGB Conc 33.4 g/dl (31.0-35.0); Mean Corpuscular Hemoglobin 31.5 pg (27.0-33.0); Mean Corpuscular Volume 94.3 fL (80.0-98.0); Mean Platelet Volume 9.3 fL (9.4-12.3); Platelet Count 345 X10*3/uL (160-400); Red Cell Distribution Width 13.2 % (11.0-16.0); White Blood Count 10.1 X10*3/uL (4.8-10.8)
[2022-01-09 06:31] LABS: Alanine Aminotransferase 34 U/L (0-31); Albumin Level 3.8 g/dL (3.5-5.0); Alkaline Phosphatase 64 U/L (39-117); Anion Gap 12 (12-20); Aspartate Amino Transferase 26 U/L (5-31); Bilirubin Direct < 0.2 mg/dL (0.0-0.5); Bilirubin Total 0.2 mg/dL (0.0-1.0); Blood Urea Nitrogen 10 mg/dL (9-16); Calcium 9.8 mg/dL (8.4-10.2); Carbon Dioxide 28 mmol/L (22-29); Chloride 100 mmol/L (96-108); Creatinine Clr Calc Pharmacy 113.6; Estimated Glomerular Filt Rate > 60; Glucose Fasting 97 mg/dL (60-99); Potassium 4.9 mmol/L (3.3-5.1); Sodium 135 mmol/L (135-145); Total Protein 6.4 g/dL (6.5-8.0)
[2022-01-09 07:59] VITALS: BP 121/87; PULSE 102; RESP 20; TEMP 36.1; O2SAT 98
[2022-01-09] MEDS: Buprenorphine/Naloxone 4/1 mg FILM 1 FILM SUBLINGUAL (09:30)
[2022-01-09] MEDS: Famotidine 20 MG TABLET PO ×2 (09:30→20:48)
[2022-01-09] MEDS: Gabapentin 100 MG CAPSULE PO ×2 (09:30→20:48)
[2022-01-09] MEDS: 0.9 % Sodium Chloride Flush 3 ML SYRINGE IVFLUSH ×2 (09:31→20:52)
[2022-01-09] MEDS: LORazepam 2 MG/ML VIAL 1 MG IVPUSH ×6 (09:31→23:48)
--- NOTE | 2022-01-09 09:57 | P.PNIM_ITS ---
Subjective Subjective Date of Service: 01/09/22 Interval History: cc: ams interval history:?overall significantly improved, still jittery Cardiovascular Cardiovascular: Reports no additional cardiovascular complaints Respiratory Respiratory: Reports no additional respiratory complaints Physical Exam Vital Signs: Vital Signs: Last Vital Signs Temp 97.0 F 01/09/22 07:59 Pulse 102 H 01/09/22 07:59 Resp 20 01/09/22 07:59 BP 121/87 01/09/22 07:59 Pulse Ox 98 01/09/22 07:59 BMI result Body Mass Index 29.1 General: AO X 3, shaky Resp:? CTA bilateral, no accessory muscles used CVS: S1,S2,RRR GI: soft, non tender, non distended Neuro:? motor grossly intact, alert Psych: appropriate affect, appropriate insight? Objective Data Active Medications Buprenorphine/Naloxone (Buprenorphine/Naloxone 4/1 Mg Film) 1 film SUBLINGUAL DAILY [facility] Last Admin: 01/09/22 09:30 Dose: 1 film Documented by: ANDERS Cyclobenzaprine HCl (Cyclobenzaprine Hcl 5 Mg Tablet) 5 mg PO TID PRN PRN Reason: spasm Last Admin: 01/09/22 00:03 Dose: 5 mg Documented by: ANTARMEN Enoxaparin Sodium (Enoxaparin Sodium 40 Mg/0.4 Ml Syringe) 40 mg SUBCUT Q24H S Last Admin: 01/09/22 00:04 Dose: Not Given Documented by: ANTOIC Non-Admin Reason: Patient Refused Famotidine (Famotidine 20 Mg Tablet) 20 mg PO BID [facility] Last Admin: 01/09/22 09:30 Dose: 20 mg Documented by: ANDERS Gabapentin (Gabapentin 100 Mg Capsule) 100 mg PO BID [facility] Last Admin: 01/09/22 09:30 Dose: 100 mg Documented by: ANDERS Lactated Ringer's (Lr) 1,000 mls @ 100 mls/hr IVCONT .Q10H [facility] Last Admin: 01/09/22 00:04 Dose: 100 mls/hr Documented by: ANTOIC Lorazepam (Lorazepam 2 Mg/Ml Vial) 1 mg IVPUSH Q2H PRN PRN Reason: Breakthrough alcohol withdrawa Last Admin: 01/09/22 09:31 Dose: 1 mg Documented by: HO.DOBROB Sodium Chloride (0.9 % Sodium Chloride Flush 3 Ml Syringe) 3 ml IVFLUSH QSHIFT [facility] Last Admin: 01/09/22 09:31 Dose: 3 ml Documented by: ANDERS Labs CBC & Chem 7: 01/09/22 05:58 01/09/22 05:58 Labs: Laboratory Results - last 24 hr 01/09/22 01/09/22 05:58 05:58 MCV 94.3 MCH 31.5 MCHC 33.4 RDW 13.2 Plt Count 345 MPV 9.3 L Absolute Nucleated RBC 0.000 Nucleated RBC % (auto) 0.0 Anion Gap 12 Estim Creat Clear Calc 113.6 Estimated GFR > 60 Fasting Glucose 97 Calcium 9.8 D Magnesium 2.0 Total Bilirubin 0.2 Direct Bilirubin < 0.2 AST 26 D ALT 34 H Alkaline Phosphatase 64 Total Protein 6.4 L Albumin 3.8 Assessment and Plan (1) Alcohol withdrawal syndrome: Status: Acute Plan 36F presented with ams alcohol dependence with withdrawal and delerium improving slowly, overall much better last 2 days continue gabapentin, ativan, monitor ciwa if continues to improve, plan for discharge home tomorrow opioate dependence suboxone reason for continued hospitalization: still with some withdrawal, given severity of presentation at risk for decompensation, still requiring close monitoring. Quality Stroke Does the patient have a stroke diagnosis?: No VTE Prior VTE?: No VTE Risk Level:: Medical - moderate - high VTE Device Contraindication: Treatment Not Indicated VTE Drug Contraindication: N/A - Med Ordered
[2022-01-09 11:54] VITALS: BP 116/66; PULSE 61; RESP 20; TEMP 36.7; O2SAT 96
[2022-01-09 15:18] VITALS: BP 124/58; PULSE 100; RESP 17; TEMP 36.2; O2SAT 98
[2022-01-09 19:10] VITALS: BP 123/76; PULSE 100; RESP 17; TEMP 36.2; O2SAT 100
[2022-01-10] VITALS: BP 127/78; PULSE 105; RESP 18; TEMP 37; O2SAT 97
[2022-01-10] MEDS: Enoxaparin Sodium 40 MG/0.4 ML SYRINGE SUBCUT (02:30)
[2022-01-10 03:38] VITALS: BP 118/67; PULSE 93; RESP 18; TEMP 36.4; O2SAT 98
[2022-01-10] MEDS: LORazepam 2 MG/ML VIAL 1 MG IVPUSH ×2 (03:54→08:54)
[2022-01-10] MEDS: Lactated Ringers 1,000 ML 100 ML IVCONT (06:35)
[2022-01-10 07:18] VITALS: BP 119/69; PULSE 87; RESP 18; TEMP 36.9; O2SAT 98
[2022-01-10] MEDS: Famotidine 20 MG TABLET PO (08:50)
[2022-01-10] MEDS: Gabapentin 100 MG CAPSULE PO (08:50)
[2022-01-10] MEDS: 0.9 % Sodium Chloride Flush 3 ML SYRINGE IVFLUSH (08:56)
--- NOTE | 2022-01-10 09:29 | P.DS_ITS ---
DS: Providers Provider Date of Service: 01/10/22 Date of admission: 01/05/22 01:59 Primary care physician: [facility] Consults: 01/05/22 02:05 Addiction Medicine Routine Consulting Provider: Lena Jorge Reason for consultation: opiate dependence; pt on suboxone DS: Diagnosis Discharge Diagnosis (1) Alcohol withdrawal syndrome: Status: Acute DS: Summary Hospital Course Hospital Course: from initial hpi:Chief Complaint: Alcohol withdrawal 36-year-old female with a past medical history of hypertension, alcohol abuse presented to the hospital today with a chief complaint of alcohol withdrawal. Patient reports that she has been drinking about 20 shortness of alcohol every day for the past 1 year; recent decided to reduce alcohol intake and started to decrease her dose of alcohol for the past 2 weeks and came to 1 short about 3 days ago and has not had a drink since then.? Mentioned that she is tremulous and has been not able to sleep for the past 3-5 days.? Denies any nausea vomiting or abdominal pain.? Reports he had but blurry at home.? When police came in they checked her blood pressure noted to be on the higher side; suggested her to go to the ER for further evaluation.? Patient denies any chest pain palpitations lightheadedness or dizziness.? Denies any fever chills cough.? Denies any GI symptoms.? Review of all other systems is negative except mentioned above ER course: Per ER team patient on presentation noted to be in alcohol withdrawal.? Given Ativan.? On labs noted to have potassium 3.2.? Troponin slightly above the upper normal.? Admitted for further management hospital course: patient was admitted for alcohol dependence with withdrawal and delerium. she had fairly severe symptoms requiring ativan, gabapentin, and valproic acid, close monitoring, after several days patient started to feel better, become oriented and had resolution of halluycination, tremors, ear ringing. she will be discharged home, encouraged to avoid etoh, follow up with pcp for treatement of anxiety. for her opiate dependence she will continue suboxone. patient had previously been treated with valsartan/hctz for htn. however, she has had loq- normal bloodpressure while in hospital, without medications, will continue to hold on discharge. Time Spent with Patient Time attestation: Total time spent providing and/or coordinating discharge services: Discharge coordination time: Greater than 30 minutes Quality: Safe Use of Opioids Does Pt have an Active Cancer Diagnosis on the Problem List?: No Quality: Stroke Does the patient have a stroke diagnosis?: No Physical Exam Vital Signs: Vital Signs: Last Vital Signs Temp 98.4 F 01/10/22 07:18 Pulse 87 01/10/22 07:18 Resp 18 01/10/22 07:18 BP 119/69 01/10/22 07:18 Pulse Ox 98 01/10/22 07:18 BMI result Body Mass Index 29.1 General: AO X 3, no acute distress Resp: CTA bilateral, no accessory muscles used CVS: S1,S2,RRR GI: soft, non tender, non distended Neuro: motor grossly intact, alert Psych: appropriate affect, appropriate insight Discharge Plan Discharge Patient Disposition: Home, Self-Care Discharge Diagnosis: etoh withdrawal Referrals: [place] [Primary Care Provider] - 1 Week Discharge Medications: New cyclobenzaprine 5 mg Tablet 5 mg PO TID PRN (Reason: spasm) Qty: 30 0RF Continued buprenorphine-naloxone [Suboxone] 4-1 mg film 1 strip sublingual DAILY 0RF Discontinued lisinopril-hydrochlorothiazide 10-12.5 mg tablet 1 tab PO DAILY 0RF Discharge Orders: Discharge Order (Routine); Ordered 01/10/22 Ordered By: Austyn Mujica Diet: advance to usual diet Activity on Discharge: As tolerated Stand Alone Forms: Patient Portal Discharge page Care Plan Goals: recovery Health Concerns: etoh Plan of Treatment: avoid etoh, follow up with a primary care phsycian, we held your blood pressure meds as your blood pressure has been on the lower side Assessment: see above
--- NOTE | 2022-01-10 09:32 | MHC.CM.PN ---
Patient has been medically cleared for dc to home today, no services.
[2022-01-10] MEDS: Buprenorphine/Naloxone 4/1 mg FILM 1 FILM SUBLINGUAL (10:13)
--- NOTE | 2022-01-10 10:41 | HO.ADDICTPRO ---
Subjective Subjective Date of Service: 01/10/22 Reason For Visit: Alcohol Withdrawal Syndrome Interim History: Patient seen in follow up. Has been medically admitted since , 12/08 for alcohol withdrawal Today, patient preparing for discharge. Discussed OUD, patient expressed desire to increase dose from 4mg QD to 4mg BID. She identified thoughts of using and frequent afternoon withdrawal sx as motivation for dose change. Discussed alcohol use. At time of interview patient did not identify her alcohol use as a problem. Was open to discussion in able to reflect on current admission in previous admissions related to alcohol use. Agreeable to restarting Campral, which she reports she has at home. She identified anxiety as a major trigger for her drinking, she currently does not have any behavioral health providers but is scheduled to begin the partial hospitalization program this week. Review of Systems Constitutional: Reports as per HPI Mental Status Exam Mental Status Exam Patient Orientation: Person, Place and Situation Level of Consciousness: Awake and Appropriate Mood Description: Anxious Affect Description: Anxious Thought Process: Goal Oriented and Linear Judgement: Fair Diagnostics Vital Signs (24Hr): Vital Signs - 24 hr 01/09/22 11:54 01/09/22 15:18 01/09/22 19:10 Temperature 98.0 F 97.2 F 97.2 F Pulse Rate 61 100 100 Respiratory Rate 20 17 17 Blood Pressure 116/66 124/58 L 123/76 Pulse Oximetry 96 98 100 01/10/22 00:00 01/10/22 03:38 01/10/22 07:18 Temperature 98.6 F 97.6 F 98.4 F Pulse Rate 105 H 93 87 Respiratory Rate 18 18 18 Blood Pressure 127/78 118/67 119/69 Pulse Oximetry 97 98 98 BMI result Body Mass Index 29.1 Labs Results: 01/09/22 05:58 01/09/22 05:58 Labs: Laboratory Results - last 48 hr 01/09/22 01/09/22 05:58 05:58 WBC 10.1 RBC 4.00 L Hgb 12.6 Hct 37.7 MCV 94.3 MCH 31.5 MCHC 33.4 RDW 13.2 Plt Count 345 MPV 9.3 L Absolute Nucleated RBC 0.000 Nucleated RBC % (auto) 0.0 Sodium 135 Potassium 4.9 Chloride 100 Carbon Dioxide 28 Anion Gap 12 BUN 10 Creatinine 0.72 Estim Creat Clear Calc 113.6 Estimated GFR > 60 Fasting Glucose 97 Calcium 9.8 D Magnesium 2.0 Total Bilirubin 0.2 Direct Bilirubin < 0.2 AST 26 D ALT 34 H Alkaline Phosphatase 64 Total Protein 6.4 L Albumin 3.8 Medications Medications Current Medications Buprenorphine/Naloxone (Buprenorphine/Naloxone 4/1 Mg Film) 1 film SUBLINGUAL DAILY [facility] Last Admin: 01/10/22 10:13 Dose: 1 film Documented by: Cyclobenzaprine HCl (Cyclobenzaprine Hcl 5 Mg Tablet) 5 mg PO TID PRN PRN Reason: spasm Last Admin: 01/09/22 23:02 Dose: 5 mg Documented by: Enoxaparin Sodium (Enoxaparin Sodium 40 Mg/0.4 Ml Syringe) 40 mg SUBCUT Q24H [facility] Last Admin: 01/10/22 02:30 Dose: 40 mg Documented by: Famotidine (Famotidine 20 Mg Tablet) 20 mg PO BID [facility] Last Admin: 01/10/22 08:50 Dose: 20 mg Documented by: Gabapentin (Gabapentin 100 Mg Capsule) 100 mg PO BID [facility] Last Admin: 01/10/22 08:50 Dose: 100 mg Documented by: Lactated Ringer's (Lr) 1,000 mls @ 100 mls/hr IVCONT .Q10H [facility] Last Admin: 01/10/22 06:35 Dose: 100 mls/hr Documented by: Lorazepam (Lorazepam 2 Mg/Ml Vial) 1 mg IVPUSH Q4H PRN PRN Reason: Breakthrough alcohol withdrawa Last Admin: 01/10/22 08:54 Dose: 1 mg Documented by: Sodium Chloride (0.9 % Sodium Chloride Flush 3 Ml Syringe) 3 ml IVFLUSH QSHIFT [facility] Last Admin: 01/10/22 08:56 Dose: 3 ml Documented by: Allergies Allergies Allergy/AdvReac Type Severity Reaction Status Date / Time prednisone [PREDNISONE] Allergy Severe SWELLING, Verified 12/16/21 22:24 HTN Assessment & Plan Assessment & Plan (1) Alcohol use disorder, severe, dependence: Status: Acute Code(s): F10.20 - Alcohol dependence, uncomplicated Assessment and Plan: patient to restart campral at home has connected with recovery coaches during this admission and will be following up with them hydroxyzine rx sent to address anxiety sx identifed by patient (2) Opioid use disorder: Status: Acute Code(s): F11.90 - Opioid use, unspecified, uncomplicated Assessment and Plan: suboxone rx increased to 4mg BID take home narcan provided I spent ____25__ minutes with the patient and/or on the patient floor today, greater than?50% of which was spent counseling/coordinating care.
[2022-01-10 11:13] VITALS: BP 115/66; PULSE 101; RESP 18; TEMP 36.6; O2SAT 98
== END 2022-01-10 13:38 | disposition home or self-care (01) | DRG 773 ==
LOC: HO.ED 02:01 → HO.EDOVER 02:12 → HO.IMC 01-06 12:36
PROVIDERS: Admitting Provider Hospitalist; Emergency Provider Student in an Organized Health Care Education/Training Program; Visit Provider Internal Medicine
DX: F10.231 Alcohol dependence with withdrawal delirium (principal); F11.20 Opioid dependence, uncomplicated; F10.251 Alcohol dependence with alcohol-induced psychotic disorder with hallucinations; E87.6 Hypokalemia; G47.00 Insomnia, unspecified; I10 Essential (primary) hypertension; Z20.822 Contact with and (suspected) exposure to COVID-19; Z79.899 Other long term (current) drug therapy
CPT/HCPCS: 36415; 80048; 80053; 80076; 80307; 81001; 81025; 82077; 82550; 83735; 84702; 85025; 85027; 87086; 87635; 96360; 99285; J1650; J2060